=== PATIENT | female | born 1995 | race Hispanic/Latino ===

== ENCOUNTER 2018-02-20 23:10 | Emergency (ER) | payer SELFPAY ==
[2018-02-21 00:44] LABS: Urine Blood NEGATIVE (NEG); Urine Glucose TRACE (NEG); Urine Protein NEGATIVE (NEG); Urine pH 8.5 (5.0-7.0)
--- NOTE | 2018-02-21 01:21 | ER ---
Nurse's Notes [facility] Name: Yola Smith Age: 22 yrs Sex: Female : 1995 Arrival Date: 02/20/2018 Time: 23:16 Bed 25 Private MD: Diagnosis: Acute anal fissure Presentation: 02/20 23:30 Presenting complaint: Patient states: that she is having bleeding when she has a bowel fc movement. Pt is having constipation. Transition of care: patient was not received from another setting of care. Onset of symptoms was February 20, 2018. Risk Assessment: Do you want to hurt yourself or someone else? Patient reports no desire to harm self or others. Initial Sepsis Screen: Does the patient meet any 2 criteria? No. Patient's initial sepsis screen is negative. Does the patient have a suspected source of infection? No. Patient's initial sepsis screen is negative. Care prior to arrival: None. 23:30 Method Of Arrival: Ambulatory fc 23:30 Acuity: CARLOS ALBERTO 3 fc Triage Assessment: 23:32 General: Appears comfortable, well groomed, Behavior is calm, cooperative, appropriate fc for age. Pain: Complains of pain in anus Quality of pain is described as burning, aching, Pain began gradually, Is intermittent. EENT: No deficits noted. Neuro: Level of Consciousness is awake, alert, obeys commands, Oriented to person, place, time, situation. Cardiovascular: No deficits noted. Respiratory: No deficits noted. GI: Reports rectal bleeding. : No deficits noted. Derm: Skin is pink, warm \T\ dry. Musculoskeletal: Circulation, motion, and sensation intact. Capillary refill < 3 seconds, Range of motion: intact in all extremities. 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 - Social history:: Smoking status: Patient/guardian denies using tobacco. - Ebola Screening: : Patient negative for fever greater than or equal to 101.5 degrees Fahrenheit, and additional compatible Ebola Virus Disease symptoms Patient denies exposure to infectious person Patient denies travel to an Ebola-affected area in the 21 days before illness onset. Screenin/23 00:46 Abuse screen: Denies threats or abuse. Nutritional screening: No deficits noted. tl3 Tuberculosis screening: No symptoms or risk factors identified. Fall Risk None identified. Assessment: 00:46 General: Appears in no apparent distress. comfortable, slender, well groomed, well tl3 developed, well nourished, Behavior is calm, cooperative, appropriate for age. Pain: Complains of pain in rectal pain with BM. Neuro: Level of Consciousness is awake, alert, obeys commands, Oriented to person, place, time, situation, Appropriate for age. Cardiovascular: Heart tones S1 S2 present Patient's skin is warm and dry. Respiratory: Airway is patent Respiratory effort is even, unlabored, Respiratory pattern is regular, symmetrical, Breath sounds are clear bilaterally. GI: No signs and/or symptoms were reported involving the gastrointestinal system. : No signs and/or symptoms were reported regarding the genitourinary system. EENT: No signs and/or symptoms were reported regarding the EENT system. Derm: No signs and/or symptoms reported regarding the dermatologic system. Musculoskeletal: No signs and/or symptoms reported regarding the musculoskeletal system. 01:14 Reassessment: No changes from previously documented assessment. Patient and/or family fc updated on plan of care and expected duration. Pain level reassessed. Patient is alert, oriented x 3, equal unlabored respirations, skin warm/dry/pink. Dr Mcdonnell in the room to see and examine pt. Vital Signs: 02/20 23:34 BP 112 / 64; Pulse 99; Resp 20; Temp 98.7(O); Pulse Ox 100% on R/A; Weight 68.04 kg fc (R); Height 5 ft. 5 in. (165.10 cm) (R); Pain 4/10; 02/21 00:46 BP 116 / 69; Pulse 90; Resp 18; Pulse Ox 99% ; tl3 02/20 23:34 Body Mass Index 24.96 (68.04 kg, 165.10 cm) ED Course: 02/20 23:16 Patient arrived in ED. ds1 23:31 Triage completed. 23:34 Arm band placed on Patient placed in waiting room, Patient notified of wait time. 02/21 00:26 Brian Mcdonnell MD is Attending Physician. 00:31 Mona Vera, RN is Primary Nurse. tl3 00:46 Patient has correct armband on for positive identification. Placed in gown. Bed in low tl3 position. Call light in reach. Side rails up X 1. Adult w/ patient. Warm blanket given. 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 kr2 01:20 Patient did not have IV access during this emergency room visit. kr2 01:21 Pino Fung MD is Referral Physician. gs Administered Medications: No medications were administered Outcome: 01:20 Discharged to home ambulatory, with friend. kr2 01:20 Condition: good 01:20 Discharge instructions given to patient, Instructed on discharge instructions, follow up and referral plans. medication usage, Demonstrated understanding of instructions, follow-up care, medications, Prescriptions given X 1. 01:21 Discharge ordered by . 01:27 Patient left the ED. kr2 Signatures: Madeleine Jama RN RN Ysabel Lozano ds1 Margarita Hairston RN RN tl2 Brian Mcdonnell MD MD Mariel Vitale RN RN kr2 Mona Vera, RN RN tl3 Corrections: (The following items were deleted from the chart) 01:19 00:46 No provider procedures requiring assistance completed. 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 tl2 tl2 01:27 01:20 Discharge instructions given to patient, Instructed on discharge instructions, kr2 follow up and referral plans. Demonstrated understanding of instructions, follow-up care, kr2
--- NOTE | 2018-02-21 01:21 | EDPHYS ---
Physician Documentation [facility] Name: Yola Smith Age: 22 yrs Sex: Female : 1995 Arrival Date: 02/20/2018 Time: 23:16 Bed 25 Private MD: ED Physician Brian Mcdonnell HPI: 02/21 01:15 This 22 yrs old Female presents to ER via Ambulatory with complaints of Rectal gs Bleeding. 01:15 The patient presents to the emergency department with bleeding from the rectum/anus, gs that is moderate, pain in the rectal area, that is moderate. Onset: The symptoms/episode began/occurred yesterday. Context: the patient has no known special context relating to the rectal area complaint(s). Modifying factors: The symptoms are aggravated by bowel movement. Associate signs and symptoms: Pertinent positives: lower GI bleeding, Pertinent negatives: abdominal pain, fever. The patient has not experienced similar symptoms in the past. The patient has not recently seen a physician. 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 - Social history:: Smoking status: Patient/guardian denies using tobacco. - Ebola Screening: : Patient negative for fever greater than or equal to 101.5 degrees Fahrenheit, and additional compatible Ebola Virus Disease symptoms Patient denies exposure to infectious person Patient denies travel to an Ebola-affected area in the 21 days before illness onset. ROS: 02/21 01:15 All other systems are negative. gs Exam: 01:15 Chest/axilla: Normal chest wall appearance and motion. Nontender with no deformity. gs No lesions are appreciated. Cardiovascular: Regular rate and rhythm with a normal S1 and S2. No gallops, murmurs, or rubs. Normal PMI, no JVD. No pulse deficits. Respiratory: Lungs have equal breath sounds bilaterally, clear to auscultation and percussion. No rales, rhonchi or wheezes noted. No increased work of breathing, no retractions or nasal flaring. Abdomen/GI: Soft, non-tender, with normal bowel sounds. No distension or tympany. No guarding or rebound. No evidence of tenderness throughout. Skin: Warm, dry with normal turgor. Normal color with no rashes, no lesions, and no evidence of cellulitis. MS/ Extremity: Pulses equal, no cyanosis. Neurovascular intact. Full, normal range of motion. 01:15 Constitutional: The patient appears alert, awake. 01:15 Abdomen/GI: Rectal exam: hemorrhoid(s), are not appreciated, with associated bleeding, 2 cm anal fissure at 6 oclock mild bleeding, tenderness, that is mild, the exam is chaperoned by the nurse. Vital Signs: 02/20 23:34 BP 112 / 64; Pulse 99; Resp 20; Temp 98.7(O); Pulse Ox 100% on R/A; Weight 68.04 kg fc (R); Height 5 ft. 5 in. (165.10 cm) (R); Pain 4/10; 02/21 00:46 BP 116 / 69; Pulse 90; Resp 18; Pulse Ox 99% ; tl3 02/20 23:34 Body Mass Index 24.96 (68.04 kg, 165.10 cm) MDM: 01:14 Patient medically screened. gs 01:15 Differential diagnosis: hemorrhoids, fissure. Data reviewed: vital signs, nurses notes. gs Response to treatment: the patient's symptoms have markedly improved after treatment, and as a result, I will discharge patient. 02/21 00:37 Order name: Urine Dipstick--Ancillary (enter results); Complete Time: 01:22 rg2 02/21 01:00 Order name: Urine --Ancillary (enter results); Complete Time: : rg2 Administered Medications: No medications were administered Disposition: 02/21/18 01:21 Discharged to Home. Impression: Acute anal fissure. - Condition is Stable. - Discharge Instructions: Anal Fissure, Adult. - Prescriptions for Colace 100 mg Oral Tablet - take 1 tablet by ORAL route every 12 hours; 14 tablet. - Medication Reconciliation Form, Thank You Letter, Antibiotic Education, Prescription Opioid Use, Family Work Release form. - Follow up: Private Physician; When: 2 - 3 days; Reason: Re-evaluation by your physician. Follow up: Pino Fung MD; When: 2 - 3 days; Reason: Re-evaluation by your physician. - Notes: recticare with lidocaine over the counter as directed Signatures: Dispatcher [employer] Madeleine Harper RN RN Brian Mcdonnell MD MD gs Reaves, Karey, RN RN kr2 Corrections: (The following items were deleted from the chart) 01:27 01:21 02/21/2018 01:21 Discharged to Home. Impression: Acute anal fissure. Condition is kr2 Stable. Forms are Medication Reconciliation Form, Thank You Letter, Antibiotic Education, Prescription Opioid Use. Follow up: Private Physician; When: 2 - 3 days; Reason: Re-evaluation by your physician. Follow up: Pino Fung; When: 2 - 3 days; Reason: Re-evaluation by your physician.
== END 2018-02-21 01:27 | disposition home or self-care (01) ==
LOC: ER 23:10
DX: K60.2 Anal fissure, unspecified (principal)
CPT/HCPCS: 81003; 81025; 99283

== ENCOUNTER 2020-05-27 17:49 | Emergency (ER) | payer SELFPAY ==
[2020-05-27 18:52] LABS: Absolute Lymphocytes (CBC) 1.4 K/uL (0.7-4.9); Basophils % 1.3 % (0-1.3); Hematocrit 21.3 % (36.0-45.0); Lymphocytes % 19.4 % (15.3-44.8); MPV 10.8 fL (7.6-11.3); RBC Red Blood Cell Count 3.76 M/uL (3.86-4.86)
[2020-05-27 18:54] LABS: BUN Blood Urea Nitrogen 11 mg/dL (7-18); Bicarbonate 27 mmol/L (21-32); Glucose Level 97 mg/dL (74-106); Potassium 4.1 mmol/L (3.5-5.1); Sodium Level 140 mmol/L (136-145)
[2020-05-27 19:42] LABS: Anisocytosis 1+; Blood Morphology Comment NOTED (NOT SEEN); Hypochromasia 3+; Platelet Estimate ADEQ; White Blood Cell Scan OK (OK)
[2020-05-27 19:55] LABS: Urine Blood TRACE (NEG); Urine Glucose NEGATIVE (NEG); Urine Protein NEGATIVE (NEG); Urine Specific Gravity 1.025 (1.005-1.030)
[2020-05-27] MEDS ORDERED: NA CHLORIDE 0.9% 500 ML ONE (21:25)
[2020-05-28 03:44] LABS: Hematocrit 25.2 % (36.0-45.0)
--- NOTE | 2020-05-28 04:07 | ER ---
Nurse's Notes [facility] Name: Yola Smith Age: 24 yrs Sex: Female : 1995 Arrival Date: 05/27/2020 Time: 17:56 Bed 7 Private MD: Diagnosis: Symptomatic Anemia Presentation: 05/27 18:00 Chief complaint: Patient states: HGB 6.0, sent by her doctor Fabiola. She has had ll1 vaginal bleeding for 9 months. Weak and easily fatigued for 5 weeks. Coronavirus screen: Client denies travel out of the [place] in the last 14 days. At this time, the client does not indicate any symptoms associated with coronavirus-19. Ebola Screen: Patient denies travel to an Ebola-affected area in the 21 days before illness onset. Initial Sepsis Screen: Does the patient meet any 2 criteria? HR > 90 bpm. Risk Assessment: Do you want to hurt yourself or someone else? Patient reports no desire to harm self or others. Onset of symptoms was October 26, 2019. 18:00 Method Of Arrival: Ambulatory ll1 18:00 Acuity: CARLOS ALBERTO 3 ll1 18:30 Initial Sepsis Screen: Does the patient have a suspected source of infection? No. sv Patient's initial sepsis screen is negative. 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 - Social history:: Smoking status: Patient denies any tobacco usage or history of. Screenin:30 Abuse screen: Denies threats or abuse. Denies injuries from another. Nutritional sv screening: No deficits noted. Tuberculosis screening: No symptoms or risk factors identified. Fall Risk None identified. Assessment: 18:30 General: Appears in no apparent distress. comfortable, well groomed, well developed, sv Behavior is calm, cooperative, appropriate for age. General: Reports fatigue for >3 days. Pain: Denies pain. Neuro: Level of Consciousness is awake, alert, obeys commands, Oriented to person, place, time, situation, Moves all extremities. Full function Gait is steady, Speech is normal, Reports weakness. Respiratory: Airway is patent Respiratory effort is even, unlabored, Respiratory pattern is regular, symmetrical. Derm: Skin is intact, Skin is pale. 19:15 Reassessment: Patient appears in no apparent distress at this time. Patient aware of lp1 plan for blood transfusion. Neuro: Level of Consciousness is awake, alert, obeys commands, Oriented to person, place, time, situation. Respiratory: Respiratory effort is even, unlabored. Derm: Skin is intact, Skin is dry, Skin is pale. 21:25 Reassessment: nurse at bedside for beginning of PRBC transfusion. lp1 21:25 Neuro: Level of Consciousness is awake, alert, obeys commands. Respiratory: Respiratory lp1 effort is even, unlabored. Derm: Skin is intact, Skin is dry, Skin is pale. 23:45 Reassessment: Patient is alert, oriented x 3, equal unlabored respirations, skin lp1 warm/dry/pink. Patient ambulated to bathroom independently at this time;. 05/28 01:30 Reassessment: Patient appears in no apparent distress at this time. Patient is alert, lp1 oriented x 3, equal unlabored respirations, skin warm/dry/pink. Patient aware of 2hr post H/H to be drawn after completion of transfusion; significant other at bedside. 03:30 Reassessment: Patient appears in no apparent distress at this time. Patient is alert, lp1 oriented x 3, equal unlabored respirations, skin warm/dry/pink. Patient states feeling better. 04:02 Reassessment: Patient appears in no apparent distress at this time. Patient is alert, lp1 oriented x 3, equal unlabored respirations, skin warm/dry/pink. Patient demonstrates understanding of follow up with her doctor Patient states feeling better. Vital Signs: 05/27 18:00 BP 127 / 70; Pulse 95; Resp 17; Temp 98.9; Pulse Ox 100% ; Weight 79.38 kg; Height 5 ll1 ft. 2 in. (157.48 cm); Pain 0/10; 19:00 BP 100 / 67; Pulse 88; Resp 18; Pulse Ox 100% on R/A; lp1 19:30 BP 100 / 65; Pulse 87; Resp 18; Pulse Ox 100% on R/A; lp1 21:00 BP 103 / 59; Pulse 87; Resp 16; Temp 98.6; Pulse Ox 100% on R/A; lp1 23:25 BP 110 / 63; Pulse 78; Resp 16; Temp 98.3(TE); Pulse Ox 100% on R/A; lp1 23:55 lp1 05/28 01:25 BP 106 / 71; Pulse 80; Resp 16; Temp 98.6(TE); Pulse Ox 100% on R/A; lp1 04:00 BP 110 / 66; Pulse 73; Resp 16; Pulse Ox 100% on R/A; lp1 05/27 18:00 Body Mass Index 32.01 (79.38 kg, 157.48 cm) 1 05/27 21:00 See Blood Transfusion record for further vitals lp1 23:25 1 unit of PRBC completed at this time lp1 23:55 See Blood Transfusion record for further vitals lp1 05/28 01:25 Completed 2nd unit of PRBC lp1 ED Course: 05/27 17:56 Patient arrived in ED. ds1 18:02 Triage completed. ll1 18:03 Arm band placed on Patient placed in an exam room, on a stretcher. ll1 18:05 Aj Hui MD is Attending Physician. kdr 18:15 Coco Portillo RN is Primary Nurse. sv 18:25 Missed attempt(s): 20 gauge in left antecubital area. done by Luz Maria RIOJAS. Bleeding sv controlled, band aid applied, catheter tip intact. 18:30 Patient has correct armband on for positive identification. Bed in low position. Call sv light in reach. Adult w/ patient. Pulse ox on. NIBP on. Door closed. Warm blanket given. Head of bed elevated. 18:30 T\T\S collected, blood band applied to patient. Inserted saline lock: 20 gauge in right sv antecubital area, using aseptic technique. Blood collected. Flushed right antecubital with 5 ml normal saline. 18:49 Type And Screen Sent. sv 18:49 Chem 7 Sent. sv 18:49 CBC with Diff Sent. sv 19:39 Attending Physician role handed off by Aj Hui MD 7 19:39 Jose Edward MD is Attending Physician. 7 21:25 One-on-one care X 30 minutes. lp1 22:06 No provider procedures requiring assistance completed. lp1 23:55 One-on-one care X 15 minutes. lp1 05/28 03:30 Repeat lab(s) drawn. by me, sent to lab. lp1 04:03 IV discontinued, No redness/swelling at site. Pressure dressing applied. lp1 04:05 Lauren Hicks MD is Referral Physician. 7 Administered Medications: No medications were administered Outcome: 04:06 Discharge ordered by MD. 7 04:10 Discharged to home ambulatory, with significant other. lp1 04:10 Condition: good 04:10 Discharge instructions given to patient, Instructed on discharge instructions, follow up and referral plans. Demonstrated understanding of instructions, follow-up care. 04:11 Patient left the ED. lp1 Signatures: Coco Portillo RN RN Aj Hui MD MD kdr Sanford, Demi ds1 Dasia Monroe RN RN lp1 Weston Key RN RN 1 Jose Edward MD MD 7 Corrections: (The following items were deleted from the chart) 05/27 18:06 18:00 Chief complaint: Patient states: HGB 6.0, sent by her doctor Fabiola. She has ll1 had vaginal bleeding for 9 months. ll1
--- NOTE | 2020-05-28 04:07 | EDPHYS ---
Physician Documentation [facility] Name: Yola Smith Age: 24 yrs Sex: Female : 1995 Arrival Date: 05/27/2020 Time: 17:56 Bed 7 Private MD: ED Physician Jose Edward HPI: 05/28 03:56 This 24 yrs old Female presents to ER via Ambulatory with complaints of mh7 Abnormal Labs. 03:56 Abnormal lab with HGB of 6.[address] Sanchez. mh7 03:57 Onset: The symptoms/episode began/occurred yesterday. Severity of symptoms: At their mh7 worst the symptoms were moderate yesterday, in the emergency department the symptoms are unchanged. The patient has been recently seen by a physician: Dr. Sanchez. Patient had labs done by Dr. Sanchez because of history of anemia due to irregular vaginal bleeding. She currently does not have vaginal bleeding but had it for 9 months. She has had some generalized fatigue but no other complaints. She was sent to get blood transfusion then discharge and follow up in office.. 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 - Social history:: Smoking status: Patient denies any tobacco usage or history of. ROS: 05/28 03:57 Constitutional: Negative for fever, chills, and weight loss, Eyes: Negative for injury, mh7 pain, redness, and discharge, ENT: Negative for injury, pain, and discharge, Neck: Negative for injury, pain, and swelling, Cardiovascular: Negative for chest pain, palpitations, and edema, Respiratory: Negative for shortness of breath, cough, wheezing, and pleuritic chest pain, Abdomen/GI: Negative for abdominal pain, nausea, vomiting, diarrhea, and constipation, Back: Negative for injury and pain, : Negative for injury, bleeding, discharge, and swelling, MS/Extremity: Negative for injury and deformity, Skin: Negative for injury, rash, and discoloration, Neuro: Negative for headache, weakness, numbness, tingling, and seizure, Psych: Negative for depression, anxiety, suicide ideation, homicidal ideation, and hallucinations, Allergy/Immunology: Negative for hives, rash, and allergies, Endocrine: Negative for neck swelling, polydipsia, polyuria, polyphagia, and marked weight changes, Hematologic/Lymphatic: Negative for swollen nodes, abnormal bleeding, and unusual bruising. Exam: 03:57 Constitutional: This is a well developed, well nourished patient who is awake, alert, mh7 and in no acute distress. Head/Face: Normocephalic, atraumatic. 03:57 Neck: Trachea midline, no thyromegaly or masses palpated, and no cervical lymphadenopathy. Supple, full range of motion without nuchal rigidity, or vertebral point tenderness. No Meningismus. Chest/axilla: Normal chest wall appearance and motion. Nontender with no deformity. No lesions are appreciated. Cardiovascular: Regular rate and rhythm with a normal S1 and S2. No gallops, murmurs, or rubs. Normal PMI, no JVD. No pulse deficits. Respiratory: Lungs have equal breath sounds bilaterally, clear to auscultation and percussion. No rales, rhonchi or wheezes noted. No increased work of breathing, no retractions or nasal flaring. Abdomen/GI: Soft, non-tender, with normal bowel sounds. No distension or tympany. No guarding or rebound. No evidence of tenderness throughout. Back: No spinal tenderness. No costovertebral tenderness. Full range of motion. 03:57 Skin: Warm, dry with normal turgor. Normal color with no rashes, no lesions, and no evidence of cellulitis. MS/ Extremity: Pulses equal, no cyanosis. Neurovascular intact. Full, normal range of motion. Neuro: Awake and alert, GCS 15, oriented to person, place, time, and situation. Cranial nerves II-XII grossly intact. Motor strength 5/5 in all extremities. Sensory grossly intact. Cerebellar exam normal. Normal gait. Psych: Awake, alert, with orientation to person, place and time. Behavior, mood, and affect are within normal limits. 03:57 Eyes: Periorbital structures: appear normal, Pupils: equal, round, and reactive to light and accomodation, Extraocular movements: intact throughout, Conjunctiva: pale, bilaterally, Sclera: no appreciated abnormality, Lids and lashes: appear normal. 03:57 : CVA tenderness, is absent, Pelvic Exam: The exam is refused by the patient/guardian. The risks and consequences are understood by the patient, Rectal exam: is refused by patient or guardian. Vital Signs: 05/27 18:00 BP 127 / 70; Pulse 95; Resp 17; Temp 98.9; Pulse Ox 100% ; Weight 79.38 kg; Height 5 1 ft. 2 in. (157.48 cm); Pain 0/10; 19:00 BP 100 / 67; Pulse 88; Resp 18; Pulse Ox 100% on R/A; lp1 19:30 BP 100 / 65; Pulse 87; Resp 18; Pulse Ox 100% on R/A; lp1 21:00 BP 103 / 59; Pulse 87; Resp 16; Temp 98.6; Pulse Ox 100% on R/A; lp1 23:25 BP 110 / 63; Pulse 78; Resp 16; Temp 98.3(TE); Pulse Ox 100% on R/A; lp1 23:55 lp1 05/28 01:25 BP 106 / 71; Pulse 80; Resp 16; Temp 98.6(TE); Pulse Ox 100% on R/A; lp1 04:00 BP 110 / 66; Pulse 73; Resp 16; Pulse Ox 100% on R/A; lp1 05/27 18:00 Body Mass Index 32.01 (79.38 kg, 157.48 cm) [facility] 05/27 21:00 See Blood Transfusion record for further vitals [facility] 23:25 1 unit of PRBC completed at this time lp1 23:55 See Blood Transfusion record for further vitals [facility] 05/28 01:25 Completed 2nd unit of PRBC lp1 MDM: 03:57 Differential Diagnosis Anemia, generalized fatigue. dysfunctional uterine bleeding. [facility] Data reviewed: vital signs, nurses notes, lab test result(s), CBC, electrolytes, urinalysis, UPT:. Data interpreted: Pulse oximetry: on room air is 100 %. Interpretation: normal. Counseling: I had a detailed discussion with the patient and/or guardian regarding: the historical points, exam findings, and any diagnostic results supporting the discharge/admit diagnosis, lab results, the need for outpatient follow up, to return to the emergency department if symptoms worsen or persist or if there are any questions or concerns that arise at home. Response to treatment: the patient's symptoms have resolved after treatment, the patient's blood pressure is in an acceptable range, mental status has returned to baseline, the patient no longer shows bradycardia, the patient is not short of breath, the patient is not tachycardic, the patient's pain is gone, the patient's temperature has normalized, the patient is now symptom free, patient is well hydrated. 04:06 Patient medically screened. [facility] 05/27 18:06 Order name: CBC with Diff kdr 05/27 18:06 Order name: Chem 7 kdr 05/27 18:06 Order name: Type And Screen [facility] 05/27 18:54 Order name: Basic Metabolic Panel; Complete Time: 19:39 [facility] 05/27 18:58 Order name: CBC with Automated Diff; Complete Time: 22:09 [facility] 05/27 19:40 Order name: PRBC [facility] 05/27 19:43 Order name: CBC Smear Scan; Complete Time: 22:09 [facility] 05/27 19:48 Order name: Type and Screen [facility] 05/27 19:51 Order name: Urine Dipstick--Ancillary (enter results) [facility] 05/27 19:51 Order name: Urine --Ancillary (enter results) [facility] 05/27 19:55 Order name: Urine --Ancillary; Complete Time: 22:09 [facility] 05/27 19:55 Order name: Urine Dipstick-Ancillary; Complete Time: 22:09 [facility] 05/27 21:08 Order name: ABO/RH no charge; Complete Time: 22:09 [facility] 05/28 03:02 Order name: Hemoglobin [facility] 05/27 19:40 Order name: Transfuse; Complete Time: 22:09 [facility] 05/27 19:50 Order name: Urine Dipstick-Ancillary (obtain specimen); Complete Time: 19:50 [facility] 05/27 19:50 Order name: Urine Test (obtain specimen); Complete Time: 19:50 [facility] 05/28 03:02 Order name: Hematocrit [facility] 05/28 03:45 Order name: Hemoglobin; Complete Time: 03:52 [facility] 05/28 03:45 Order name: Hematocrit; Complete Time: 03:52 EDIA Administered Medications: No medications were administered Disposition: 05/28/20 04:06 Discharged to Home. Impression: Symptomatic Anemia. - Condition is Stable. - Discharge Instructions: Anemia, Nonspecific, Blood Transfusion, Care After, [id number]. - Medication Reconciliation Form, Thank You Letter, Antibiotic Education, Prescription Opioid Use form. - Follow up: Lauren Hicks MD; When: Tomorrow; Reason: Worsening of condition, Recheck today's complaints, Continuance of care, Re-evaluation by your physician. - Problem is an ongoing problem. - Symptoms have improved. Signatures: Dispatcher [employer] EDMS Dasia Monroe RN RN lp1 Weston Key RN RN ll1 Jsoe Edward MD MD mh7 Corrections: (The following items were deleted from the chart) 04:11 04:06 05/28/2020 04:06 Discharged to Home. Impression: Symptomatic Anemia. Condition is lp1 Stable. Forms are Medication Reconciliation Form, Thank You Letter, Antibiotic Education, Prescription Opioid Use. Follow up: Lauren Hicks; When: Tomorrow; Reason: Worsening of condition, Recheck today's complaints, Continuance of care, Re-evaluation by your physician. Problem is an ongoing problem. Symptoms have improved. mh7
[2020-05-28 04:57] VITALS: O2SAT 100
[2020-05-28 05:04] VITALS: TEMP 98.6
[2020-05-28 05:06] VITALS: BP 110/66
== END 2020-05-28 04:11 | disposition home or self-care (01) ==
LOC: ER 17:49
PROC: 30233N1 Transfusion of Nonautologous Red Blood Cells into Peripheral Vein, Percutaneous Approach (ICD-10-PCS; principal; 2020-05-28)
DX: D64.9 Anemia, unspecified (principal); Z91.010 Allergy to peanuts; Z91.018 Allergy to other foods
CPT/HCPCS: 36415; 80048; 81003; 81025; 85014; 85018; 85025; 86850; 86900; 86901; 99284; J7040; P9016

== ENCOUNTER 2020-08-26 07:08 | Emergency (ER) | payer SELFPAY ==
[2020-08-26] MEDS ORDERED: NA CHLORIDE 0.9% 1,000 ML ONE (07:51)
[2020-08-26 07:57] LABS: Basophils % 0.5 % (0-1.3); Hematocrit 29.7 % (36.0-45.0); Lymphocytes % 18.3 % (15.3-44.8); MPV 12.5 fL (7.6-11.3); RBC Red Blood Cell Count 4.17 M/uL (3.86-4.86)
[2020-08-26 07:58] LABS: Absolute Lymphocytes (CBC) 1.4 K/uL (0.7-4.9)
[2020-08-26] MEDS ORDERED: MORPHINE 2 MG/ML SYR ONE (08:36)
[2020-08-26] MEDS ORDERED: ONDANSETRON 4 MG/2 ML VIAL ONE (08:36)
[2020-08-26 08:45] LABS: BUN Blood Urea Nitrogen 14 mg/dL (7-18); Bicarbonate 24 mmol/L (21-32); Glucose Level 96 mg/dL (74-106); HCG, Quantitative < 1 mIU/mL (1-3); Potassium 3.8 mmol/L (3.5-5.1); Sodium Level 140 mmol/L (136-145)
[2020-08-26 08:49] LABS: ALT/SGPT 14 U/L (12-78); AST/SGOT 12 U/L (15-37); Albumin 3.6 g/dL (3.4-5.0); Alkaline Phosphatase 70 U/L (45-117); Bilirubin Direct < 0.1 mg/dL (0-0.2); Bilirubin Total 0.2 mg/dL (0.2-1.0); Lipase 105 U/L (73-393); Protein, Total 7.4 g/dL (6.4-8.2)
[2020-08-26 09:13] LABS: Blood Morphology Comment NOTED (NOT SEEN); Platelet Estimate ADEQ; Platelets, Giant MODERATE; White Blood Cell Scan OK (OK)
[2020-08-26 09:27] LABS: Urine Blood 3+ (NEG); Urine Glucose NEGATIVE (NEG); Urine Protein NEGATIVE (NEG); Urine Specific Gravity >1.030 (1.005-1.030); Urine pH 6.5 (5.0-7.0)
--- NOTE | 2020-08-26 09:39 | EDPHYS ---
Physician Documentation [facility] Name: Yola Smith Age: 25 yrs Sex: Female : 1995 Arrival Date: 08/26/2020 Time: 07:10 Bed 18 Private MD: Lauren Hicks K ED Physician Elliot Velez HPI: 08/26 07:38 This 25 yrs old Female presents to ER via Ambulatory with complaints of Pelvic alysha Pain, Vaginal Bleeding. 07:38 The patient presents with pelvic pain, vaginal bleeding that is moderate. Onset: The alysha symptoms/episode began/occurred 3 day(s) ago. Modifying factors: The symptoms are alleviated by nothing, the symptoms are aggravated by nothing. Associated signs and symptoms: The patient has no apparent associated signs or symptoms. Severity of symptoms: At their worst the symptoms were moderate, in the emergency department the symptoms are unchanged. The patient has experienced similar episodes in the past, multiple times. 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 - Social history:: Smoking status: Patient denies any tobacco usage or history of. ROS: 07:39 Constitutional: Negative for fever, chills, and weight loss, Eyes: Negative for injury, alysha pain, redness, and discharge, ENT: Negative for injury, pain, and discharge, Neck: Negative for injury, pain, and swelling, Cardiovascular: Negative for chest pain, palpitations, and edema, Respiratory: Negative for shortness of breath, cough, wheezing, and pleuritic chest pain, Back: Negative for injury and pain, : Negative for injury, bleeding, discharge, and swelling, MS/Extremity: Negative for injury and deformity, Skin: Negative for injury, rash, and discoloration, Neuro: Negative for headache, weakness, numbness, tingling, and seizure, Psych: Negative for depression, anxiety, suicide ideation, homicidal ideation, and hallucinations, Allergy/Immunology: Negative for hives, rash, and allergies, Endocrine: Negative for neck swelling, polydipsia, polyuria, polyphagia, and marked weight changes, Hematologic/Lymphatic: Negative for swollen nodes, abnormal bleeding, and unusual bruising. 07:39 Abdomen/GI: Positive for abdominal pain, of the right lower quadrant and left lower quadrant. Exam: 07:39 Constitutional: This is a well developed, well nourished patient who is awake, alert, alysha and in no acute distress. Head/Face: Normocephalic, atraumatic. Eyes: Pupils equal round and reactive to light, extra-ocular motions intact. Lids and lashes normal. Conjunctiva and sclera are non-icteric and not injected. Cornea within normal limits. Periorbital areas with no swelling, redness, or edema. ENT: Nares patent. No nasal discharge, no septal abnormalities noted. Tympanic membranes are normal and external auditory canals are clear. Oropharynx with no redness, swelling, or masses, exudates, or evidence of obstruction, uvula midline. Mucous membranes moist. Neck: Trachea midline, no thyromegaly or masses palpated, and no cervical lymphadenopathy. Supple, full range of motion without nuchal rigidity, or vertebral point tenderness. No Meningismus. Chest/axilla: Normal chest wall appearance and motion. Nontender with no deformity. No lesions are appreciated. Cardiovascular: Regular rate and rhythm with a normal S1 and S2. No gallops, murmurs, or rubs. Normal PMI, no JVD. No pulse deficits. Respiratory: Lungs have equal breath sounds bilaterally, clear to auscultation and percussion. No rales, rhonchi or wheezes noted. No increased work of breathing, no retractions or nasal flaring. Back: No spinal tenderness. No costovertebral tenderness. Full range of motion. Female : Normal external genitalia. Skin: Warm, dry with normal turgor. Normal color with no rashes, no lesions, and no evidence of cellulitis. MS/ Extremity: Pulses equal, no cyanosis. Neurovascular intact. Full, normal range of motion. Neuro: Awake and alert, GCS 15, oriented to person, place, time, and situation. Cranial nerves II-XII grossly intact. Motor strength 5/5 in all extremities. Sensory grossly intact. Cerebellar exam normal. Normal gait. 07:39 Abdomen/GI: Inspection: abdomen appears normal, distension, that is mild, Bowel sounds: active, Palpation: mild abdominal tenderness, in the right lower quadrant and left lower quadrant, Liver: no appreciated palpable abnormalities, Hernia: not appreciated. Vital Signs: 07:26 BP 124 / 85; Pulse 83; Resp 18 S; Temp 99.0(TE); Pulse Ox 98% on R/A; Weight 79.38 kg aa5 (R); Height 5 ft. 2 in. (157.48 cm) (R); Pain 10/10; 08:24 BP 119 / 59; Pulse 87; Resp 16; Pulse Ox 100% ; bp 10:06 BP 103 / 68; Pulse 80; Resp 17; Temp 98.1; Pulse Ox 100% ; bp 07:26 Body Mass Index 32.01 (79.38 kg, 157.48 cm) aa5 MDM: 07:16 Patient medically screened. alysha 07:40 Differential diagnosis: menometrorrhagia, menorrhea, nonspecific abdominal pain, alysha ovarian cyst, pelvic inflammatory disease, uterine fibroids, urinary tract infection. Data reviewed: vital signs, nurses notes, lab test result(s), radiologic studies, plain films. 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 Test interpretation: by ED physician or midlevel provider:. Counseling: I had a detailed discussion with the patient and/or guardian regarding: the historical points, exam findings, and any diagnostic results supporting the discharge/admit diagnosis, lab results, radiology results, the need for outpatient follow up. 08/26 07:28 Order name: Quantitative Hcg; Complete Time: 09:38 [facility] 08/26 07:28 Order name: Basic Metabolic Panel; Complete Time: 09:38 [facility] 08/26 07:28 Order name: CBC with Diff; Complete Time: 09:38 [facility] 08/26 07:38 Order name: LFT's; Complete Time: 09:38 [facility] 08/26 07:38 Order name: Lipase; Complete Time: 09:38 [facility] 08/26 07:53 Order name: Sed Rate; Complete Time: 09:38 [facility] 08/26 07:28 Order name: Urine Test (obtain specimen); Complete Time: 07:56 [facility] 08/26 07:28 Order name: US Transvaginal Study (Probe) [facility] 08/26 07:58 Order name: Urine Dipstick--Ancillary (enter results) em1 12/26 07:58 Order name: Urine --Ancillary (enter results); Complete Time: 09:38 [facility] 08/26 08:24 Order name: CBC Smear Scan; Complete Time: 09:38 [facility] 08/26 07:28 Order name: IV Saline Lock; Complete Time: 08:08 [facility] 08/26 07:28 Order name: Labs collected and sent; Complete Time: 08:08 [facility] 08/26 07:28 Order name: NPO; Complete Time: 08:08 [facility] 08/26 07:28 Order name: Urine Dipstick-Ancillary (obtain specimen); Complete Time: 07:56 [facility] Administered Medications: 07:30 Drug: NS 0.9% 1000 ml Route: IV; Rate: 1 bolus; Site: right antecubital; bp 10:07 Follow up: IV Status: Completed infusion; IV Intake: 1000ml bp 08:00 Drug: morphine 2 mg Route: IVP; Site: right antecubital; bp 10:08 Follow up: Response: Pain is decreased bp 08:00 Drug: Zofran (Ondansetron) 4 mg Route: IVP; Site: right antecubital; bp 10:08 Follow up: Response: No adverse reaction bp Disposition: 08/26/20 09:38 Discharged to Home. Impression: Pelvic and perineal pain, Abnormal uterine and vaginal bleeding, unspecified. - Condition is Stable. - Discharge Instructions: Abnormal Uterine Bleeding, Dysmenorrhea, Pelvic Pain, Female, [id number]. - Prescriptions for Ibuprofen 600 mg Oral Tablet - take 1 tablet by ORAL route every 6 hours As needed take with food; 20 tablet. Tylenol- Codeine #3 300-30 mg Oral Tablet - take 2 tablets by ORAL route every 6 hours As needed; 20 tablet. - Medication Reconciliation Form, Thank You Letter, Antibiotic Education, Prescription Opioid Use form. - Follow up: Dr. Elliot Velez; When: 2 - 3 days; Reason: Recheck today's complaints, Continuance of care, Re-evaluation by your physician. Follow up: Lauren Hicks; When: 2 - 3 days; Reason: Recheck today's complaints, Continuance of care, Re-evaluation by your physician. - Problem is new. - Symptoms have improved. Signatures: Dispatcher [employer] EDMS Elliot Velez MD MD cha Calderon, Audri, RN RN aa5 Mauricio Rico, RN RN bp Corrections: (The following items were deleted from the chart) 10:08 09:38 08/26/2020 09:38 Discharged to Home. Impression: Pelvic and perineal pain; bp Abnormal uterine and vaginal bleeding, unspecified. Condition is Stable. Discharge Instructions: Abnormal Uterine Bleeding, Dysmenorrhea, Pelvic Pain, Female, [id number]. Prescriptions for Ibuprofen 600 mg Oral Tablet - take 1 tablet by ORAL route every 6 hours As needed take with food; 20 tablet, Tylenol-Codeine #3 300-30 mg Oral Tablet - take 2 tablets by ORAL route every 6 hours As needed; 20 tablet. and Forms are Medication Reconciliation Form, Thank You Letter, Antibiotic Education, Prescription Opioid Use. Follow up: Dr. Elliot Velez; When: 2 - 3 days; Reason: Recheck today's complaints, Continuance of care, Re-evaluation by your physician. Follow up: Lauren Hicks; When: 2 - 3 days; Reason: Recheck today's complaints, Continuance of care, Re-evaluation by your physician. Problem is new. Symptoms have improved. alysha
--- NOTE | 2020-08-26 09:39 | ER ---
Nurse's Notes [facility] Name: Yola Smith Age: 25 yrs Sex: Female : 1995 Arrival Date: 08/26/2020 Time: 07:10 Bed 18 Private MD: Lauren Hicks K Diagnosis: Pelvic and perineal pain;Abnormal uterine and vaginal bleeding, unspecified Presentation: 08/26 07:26 Chief complaint: Patient states: low abd pain and vaginal bleeding with clots described aa5 as "heavy" for 2 days. Pt states "I've been bleeding on and off for 9 months and they put me on the Depo shot but it's not helping", last Depo was 3 weeks ago. 07:26 Coronavirus screen: Client denies travel out of the [place] in the last 14 days. At this aa5 time, the client does not indicate any symptoms associated with coronavirus-19. Ebola Screen: Patient negative for fever greater than or equal to 101.5 degrees Fahrenheit, and additional compatible Ebola Virus Disease symptoms. Initial Sepsis Screen: Does the patient meet any 2 criteria? No. Patient's initial sepsis screen is negative. Does the patient have a suspected source of infection? No. Patient's initial sepsis screen is negative. Risk Assessment: Do you want to hurt yourself or someone else? Patient reports no desire to harm self or others. Onset of symptoms was 2019. 07:26 Acuity: CARLOS ALBERTO 3 aa5 07:26 Method Of Arrival: Ambulatory aa5 Triage Assessment: 07:24 General: Appears in no apparent distress. uncomfortable, Behavior is cooperative, bp appropriate for age, anxious. Pain: Complains of pain in pelvis. EENT: No deficits noted. Neuro: No deficits noted. Cardiovascular: No deficits noted. Respiratory: No deficits noted. GI: No signs and/or symptoms were reported involving the gastrointestinal system. : Reports vaginal bleeding that is. Derm: No deficits noted. Musculoskeletal: No deficits noted. 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 - Social history:: Smoking status: Patient denies any tobacco usage or history of. Screenin:26 Abuse screen: Denies threats or abuse. Denies injuries from another. Nutritional bp screening: No deficits noted. Tuberculosis screening: No symptoms or risk factors identified. Fall Risk None identified. Assessment: 07:24 General: SEE TRIAGE NOTE. bp 08:24 Reassessment: No changes from previously documented assessment. Patient and/or family bp updated on plan of care and expected duration. Pain level reassessed. Patient is alert, oriented x 3, equal unlabored respirations, skin warm/dry/pink. U/S AT B/S. 10:06 Reassessment: PT D/C HOME AMBULATORY WITH FAMILY, DX WITH ABNORMAL UTERINE BLEEDING. bp Vital Signs: 07:26 BP 124 / 85; Pulse 83; Resp 18 S; Temp 99.0(TE); Pulse Ox 98% on R/A; Weight 79.38 kg aa5 (R); Height 5 ft. 2 in. (157.48 cm) (R); Pain 10/10; 08:24 BP 119 / 59; Pulse 87; Resp 16; Pulse Ox 100% ; bp 10:06 BP 103 / 68; Pulse 80; Resp 17; Temp 98.1; Pulse Ox 100% ; bp 07:26 Body Mass Index 32.01 (79.38 kg, 157.48 cm) aa5 ED Course: 07:10 Patient arrived in ED. as 07:10 Inserted saline lock: 20 gauge in right antecubital area, using aseptic technique. bp Blood collected. 07:11 Lauren Hicks MD is Private Physician. as 07:16 Elliot Velez MD is Attending Physician. alysha 07:24 Mauricoi Rico, BEULAH is Primary Nurse. bp 07:24 Arm band placed on. bp 07:26 Patient has correct armband on for positive identification. Bed in low position. Call bp light in reach. Side rails up X2. Adult w/ patient. 07:31 Triage completed. aa5 08:52 US Transvaginal Study (Probe) In Process Unspecified. EDMS 09:38 Elliot Velez MD is Referral Physician. alysha 09:38 Lauren Hicks MD is Referral Physician. alysha 10:06 No provider procedures requiring assistance completed. IV discontinued, intact, bp bleeding controlled, No redness/swelling at site. Pressure dressing applied. Administered Medications: 07:30 Drug: NS 0.9% 1000 ml Route: IV; Rate: 1 bolus; Site: right antecubital; bp 10:07 Follow up: IV Status: Completed infusion; IV Intake: 1000ml bp 08:00 Drug: morphine 2 mg Route: IVP; Site: right antecubital; bp 10:08 Follow up: Response: Pain is decreased bp 08:00 Drug: Zofran (Ondansetron) 4 mg Route: IVP; Site: right antecubital; bp 10:08 Follow up: Response: No adverse reaction bp Intake: 10:07 IV: 1000ml; Total: 1000ml. bp Outcome: 09:38 Discharge ordered by . alysha 10:06 Discharged to home ambulatory, with family. bp 10:06 Condition: stable 10:06 Discharge instructions given to patient, Instructed on discharge instructions, follow up and referral plans. medication usage, Demonstrated understanding of instructions, follow-up care, medications, Prescriptions given X 2. 10:08 Patient left the ED. bp Signatures: Dispatcher [employer] EDWA Elliot Velez MD MD cha Martinez, Amelia as Calderon, Audri, RN RN aa5 Mauricio Rico RN RN bp
[2020-08-26 10:14] VITALS: O2SAT 100
[2020-08-26 10:16] VITALS: BP 103/68; TEMP 98.1
--- NOTE | 2020-08-26 13:16 | RAD REPORT ---
EXAM DESCRIPTION: US - Transvaginal Study Probe - 08/26/2020 8:55 am CLINICAL HISTORY: ABD PAIN Pelvic pain. COMPARISON: No comparisons FINDINGS: The uterus is normal in size, shape and echotexture. The uterus measures 9.9 x 5.3 x 5.3 c m. The endometrial stripe measures thickened measuring 24 mm. Both ovaries are normal in size, shape and echotexture. The right ovary measures 4.5 x 2.6 x 2.4 cm. The left ovary measures 4.3 x 2.6 x 1.7 cm. No ovarian or parovarian lesions. No adnexal masses. Normal Doppler blood flow was demonstrated to both ovaries. Trace pelvic free fluid. IMPRESSION: Significant thickening of the endometrial stripe is noted measuring up to 24 mm.This is a nonspecific finding, however correlation with tissue sampling may be considered.
== END 2020-08-26 10:08 | disposition home or self-care (01) ==
LOC: ER 07:08
DX: R10.2 Pelvic and perineal pain (principal); N93.9 Abnormal uterine and vaginal bleeding, unspecified; Z91.010 Allergy to peanuts
CPT/HCPCS: 36415; 76830; 80048; 80076; 81003; 81025; 83690; 84702; 85025; 85652; 96361; 96374; 96375; 99284; J2270; J2405; J7030

== ENCOUNTER 2020-08-31 06:22 | Day surgery (SDC) | payer SELFPAY ==
[2020-08-31] MEDS ORDERED: Ringers Lactate 1,000 ML IV ONE (06:57)
[2020-08-31] MEDS: LIDOCAINE 1% W/EPI 1:100,000 10 ML VIAL ONE ×2 (07:15→08:15)
[2020-08-31] MEDS ORDERED: ACETAMINOPHEN 325 MG TABLET ONE (07:17)
[2020-08-31] MEDS ORDERED: IBUPROFEN 400 MG TAB ONE (07:17)
[2020-08-31] MEDS ORDERED: FENTANYL CITR 100 MCG/2 ML ONE (07:32)
[2020-08-31] MEDS ORDERED: MIDAZOLAM HCL 2 MG/2 ML INJ ONE (07:32)
[2020-08-31] MEDS ORDERED: propofoL 200 MG/20 ML VIAL IV ONE (07:32)
[2020-08-31] MEDS ORDERED: dexAMETHasone 10 MG/ML VIAL ONE (07:33)
[2020-08-31] MEDS ORDERED: ONDANSETRON 4 MG/2 ML VIAL ONE ×2 (07:33→08:57)
[2020-08-31] MEDS ORDERED: KETOROLAC 30 MG/ML INJ ONE (07:33)
[2020-08-31] MEDS ORDERED: LIDOCAINE 1% MPF 30 ML VIAL ONE (07:33)
[2020-08-31 08:53] VITALS: TEMP 97.9; O2SAT 96
[2020-08-31] MEDS ORDERED: HYDROCODONE/APAP 5/325 MG TAB ONE (09:18)
[2020-08-31 09:27] VITALS: BP 116/69
--- NOTE | 2020-08-31 10:09 | OP ---
Date of Procedure: 08/31/2020 Surgeon: Lauren Hicks MD Preoperative Diagnosis: Menorrhagia (AUB-O). Postoperative Diagnosis: Menorrhagia (AUB-O). Procedure Performed: Hysteroscopy, dilation and curettage. Anesthesia: MAC plus paracervical block. Specimens: Endometrial curettings. Complications: No complications. Drains: No drains. Findings: Uterus anteflexed, endometrial cavity fully visualized, irregular thick endometrium in the posterior wall of the uterus. Tiny polyp at the fundus. Adequate sampling was performed, directed curettage of the posterior wall and adequate amount of tissue was obtained. All sent for permanent p athology. Patient is a 25-year-old 0, presented with heavy bleeding 3 months ago to the office with com plaints of prolonged periods of amenorrhea, followed by bleeding, irregular and heavy intermittently since October. So when she was evaluated in May, she was sent for a blood count, then a trans vaginal ultrasound. We discussed about the plan for her bleeding management at the time conservative ly using either daily oral contraceptives or 3 monthly withdrawal to prevent any complications of end ometrial thickening and hyperplasia. Her hemoglobin came back at 6 g. She was sent to the ER for transfusion after some resistance. She understood the implications of severe anemia, so she did receive transfusion in the hospital. Later on was seen in followup and discussed all the findings of the imaging as well as plan for the future. She wanted to receive Depo and Depo injection was given. Endometrial sampling was also recommended at the time. Patient due to lack of insurance, wanted to wait and for a 25-year-old, very acceptabl e to see if this works and if it did not, then endometrial sampling, so later earlier a week ago, she called with still significant bleeding that would not stop and pelvic pain. She was evaluated in ER again. She had an ultrasound as well as blood count. Hemoglobin was still 9.7 g, fairly stable from the past level. This time after reviewing the results from the ER, she was advised to come int o the office. We discussed about the importance of endometrial sampling to rule out any atypia or ma lignancy present at this time since the Depo has not taking care of her bleeding. It was very import ant to be done KELLY, so patient was consented and taken to the OR. She was also given Levaquin and Flagyl starting 36 hours to 48 hours prior due to the pain, just want ed to make sure that there was no endometritis or endometritis salpingitis. Her past cultures were negative and she is monogamous. Description Of Procedure: After informed consent was verified, she was taken back to the OR. Her pa rtner was present by the bedside. Discussed all the concerns about atypia and malignancy. All the p re and postop instructions were reviewed. She was taken back to OR, placed in a supine fashion on th e operating table. After MAC was given, she was placed in a dorsal lithotomy position. Pelvic exam performed. Uterus anteflexed, prep x3 with Betadine was done. The vulva, vagina, speculum placed to expose the cervix. Anterior lip injected with 1% lidocaine mixed with 1:100,000 epinephrine about 8 cc and then at 4 and 8 o'clock positions, 5 cc each. A single-tooth tenaculum placed on the anterio r lip. The diagnostic SlimLine hysteroscope used to enter the cervical canal and traversed under dir ect vision into the uterine cavity. Findings posterior thickened wall with irregular endometrium. A tiny polypoid structure at the fundal endometrium, but the entire cavity visualized, scope was remov ed. Endometrial curettings were performed in a directed fashion in the posterior wall in the fundus, but globally sampling was performed in a gentle, but thorough fashion. All the specimens were salome d off for permanent pathology. Instruments were removed. Instrument and sponge counts were correct at the end of the case. Patient received 30 mg of Toradol intravenous. She was recovered from anest hesia and taken to same-day surgery without any problems. Findings discussed. Instrument, needle, a nd sponge counts were correct at end of the case. EBL was minimal. Findings discussed with her boyfriend. She has a 1-week followup appointment. She will be discharge d home. Regular diet and ambulation. No other discharge medications. SK/JAIROL Voice ID: [id number] Report ID: [id number]
== END 2020-08-31 09:38 | disposition home or self-care (01) ==
LOC: OR 06:22
PROVIDERS: ATTEND Obstetrics & Gynecology
PROC: 0UDB8ZX Extraction of Endometrium, Via Natural or Artificial Opening Endoscopic, Diagnostic (ICD-10-PCS; principal; 2020-08-31 07:30)
DX: N92.1 Excessive and frequent menstruation with irregular cycle (principal); D50.0 Iron deficiency anemia secondary to blood loss (chronic); R19.09 Other intra-abdominal and pelvic swelling, mass and lump; R10.2 Pelvic and perineal pain; Z20.828 Contact with and (suspected) exposure to other viral communicable diseases
CPT/HCPCS: 81025; 88305; J1100; J2250; J2405; J2704; J3010; J7120; U0002

== ENCOUNTER 2021-11-06 05:54 | Emergency (ER) | payer SELFPAY ==
[2021-11-06 06:42] LABS: Absolute Lymphocytes (CBC) 1.5 K/uL (0.7-4.9); Hematocrit 21.5 % (36.0-45.0); Lymphocytes % 27.5 % (15.3-44.8); MPV 9.9 fL (7.6-11.3); RBC Red Blood Cell Count 3.52 M/uL (3.86-4.86)
[2021-11-06 06:54] LABS: BUN Blood Urea Nitrogen 15 mg/dL (7-18); Bicarbonate 26 mmol/L (21-32); Glucose Level 105 mg/dL (74-106); Potassium 3.9 mmol/L (3.5-5.1); Sodium Level 137 mmol/L (136-145)
[2021-11-06] MEDS ORDERED: NA CHLORIDE 0.9% 500 ML ONE (07:40)
[2021-11-06 08:59] LABS: Platelet Estimate ADEQ; White Blood Cell Scan OK (OK)
[2021-11-06 09:00] LABS: Anisocytosis 1+; Blood Morphology Comment NOTED (NOT SEEN); Hypochromasia 2+; Polychromasia 1+; Rouleau NOTED
[2021-11-06 10:40] LABS: Urine Blood 3+ (Negative); Urine Glucose Negative (Negative); Urine Protein Negative (Negative); Urine Specific Gravity >=1.030 (1.005-1.030)
[2021-11-06 10:56] LABS: Urine Specific Gravity/Preg >1.030 (1.005-1.030)
[2021-11-06 10:58] LABS: Urine Bacteria 20-50 /HPF (<20); Urine Mucus 1+ /HPF (NONE SEEN); Urine RBC 20-50 /HPF (NONE SEEN)
--- NOTE | 2021-11-06 12:50 | EKG ---
Test Date: 2021-11-06 Test Time: 06:34:23 Gum Worker: MARY MEASUREMENT RESULTS: Intervals: Rate: 80 IA: 160 QRSD: 86 QT: 386 QTc: 445 Tracy: P: 53 IA: 160 QRS: 52 T: 50 INTERPRETIVE STATEMENTS: Normal sinus rhythm with sinus arrhythmia Normal ECG No previous ECG available for comparison Electronically Signed On 11-06-21 12:49:23 AIRCRAFT RIVETER by Paul Nixon
--- NOTE | 2021-11-06 13:14 | ER ---
Nurse's Notes [facility] Name: Yola Smith Age: 26 yrs Sex: Female : 1995 Arrival Date: 11/06/2021 Time: 05:59 Bed 6 Private MD: Diagnosis: Anemia, unspecified;Abnormal uterine and vaginal bleeding, unspecified Presentation: 11/06 06:23 Chief complaint: Patient states: vaginal bleeding [id number], sob, palpitations and sm5 headache for the past week. has received blood transfusion in the past for vaginal bleeding. Coronavirus screen: Vaccine status: Patient reports being unvaccinated. Ebola Screen: No symptoms or risks identified at this time. Initial Sepsis Screen: Does the patient meet any 2 criteria? No. Patient's initial sepsis screen is negative. Does the patient have a suspected source of infection? No. Patient's initial sepsis screen is negative. Risk Assessment: Do you want to hurt yourself or someone else? Patient reports no desire to harm self or others. Onset of symptoms was October 09, 2021. 06:23 Method Of Arrival: Ambulatory [facility] 06:23 Acuity: CARLOS ALBERTO 3 sm5 Triage Assessment: 06:25 General: Appears in no apparent distress. Behavior is cooperative. Pain: Complains of sm5 pain in head. Neuro: No deficits noted. Level of Consciousness is awake, alert, obeys commands, Oriented to person, place, time, situation. : Reports vaginal bleeding that is since 1 month. Derm: Skin is pale. 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 - Social history:: Smoking status: Patient denies any tobacco usage or history of. Screenin:47 Abuse screen: Denies threats or abuse. Nutritional screening: No deficits noted. sf1 Tuberculosis screening: No symptoms or risk factors identified. Fall Risk None identified. Assessment: 06:47 General: Appears in no apparent distress. Behavior is calm, cooperative, appropriate sf1 for age. 06:49 Reassessment: Hgb: 6.4. ER EXPORT CLERK Lincoln is aware. al4 06:49 Neuro: No deficits noted. Cardiovascular: Reports palpitations. Respiratory: Reports sf1 shortness of breath at rest. GI: No deficits noted. : Reports vaginal bleeding that is since 10/09/21. EENT: No deficits noted. Derm: Skin is pale. Musculoskeletal: No deficits noted. Vital Signs: 06:23 BP 130 / 68; Pulse 90; Resp 19; Temp 98.8(O); Pulse Ox 98% on R/A; Weight 77.11 kg; sm5 Height 5 ft. 2 in. (157.48 cm); 08:00 BP 101 / 68; Pulse 76; Resp 18; Pulse Ox 100% on R/A; ic1 08:29 BP 116 / 72; Pulse 95; Resp 18; Pulse Ox 100% ; al4 09:42 BP 111 / 70; Pulse 71; Resp 17; Pulse Ox 98% on R/A; al4 10:45 BP 107 / 67; Pulse 82; Resp 17; Pulse Ox 100% on R/A; al4 11:19 BP 110 / 65; Pulse 67; Resp 16; Pulse Ox 100% on R/A; al4 12:15 BP 102 / 75; Pulse 58; Resp 16; Pulse Ox 98% on R/A; hill 06:23 Body Mass Index 31.09 (77.11 kg, 157.48 cm) 5 ED Course: 05:59 Patient arrived in ED. es 06:00 Inserted saline lock: 20 gauge in right antecubital area, using aseptic technique. sf1 Blood collected. 06:10 Senait Stark FNP-C is PHCP. kb 06:10 Aj Hui MD is Attending Physician. kb 06:21 Sheryl Villalpando RN is Primary Nurse. sf1 06:24 Triage completed. sm5 06:25 Arm band placed on right wrist. sm5 06:32 Basic Metabolic Panel Sent. sf1 06:32 CBC with Diff Sent. sf1 06:40 Type And Screen Sent. sf1 06:44 Type And Screen Sent. sf1 06:44 Basic Metabolic Panel Sent. sf1 06:44 CBC with Diff Sent. sf1 11:20 Urine Culture Sent. al4 13:45 No provider procedures requiring assistance completed. Inserted saline lock: 20 gauge hill in left hand, using aseptic technique. 13:46 Patient has correct armband on for positive identification. Bed in low position. hill 13:46 IV discontinued, intact, Pressure dressing applied. hill Administered Medications: No medications were administered Outcome: 13:13 Discharge ordered by MD. nguyen 13:45 Discharged to home ambulatory. hill 13:45 Condition: good 13:45 Discharge instructions given to patient. 13:47 Patient left the ED. hill Signatures: Senait Stark, UPPER EXTREMITY SURGEON-C UPPER EXTREMITY SURGEON-Ckb Karina Ibrahim Alexis al4 Akiko Roach, RN RN sm5 Au-Stager, Camille RN RN Fartun Isabel RN RN ic1 Sheryl Villalpando RN RN sf1
--- NOTE | 2021-11-06 13:14 | EDPHYS ---
Physician Documentation [facility] Name: Yola Smith Age: 26 yrs Sex: Female : 1995 Arrival Date: 11/06/2021 Time: 05:59 Bed 6 Private MD: ED Physician Aj Hui HPI: 11/06 06:47 This 26 yrs old Female presents to ER via Ambulatory with complaints of kb Vaginal Bleeding. 06:47 The patient presents with vaginal bleeding that is. Onset: The symptoms/episode kb began/occurred 1 month(s) ago. Modifying factors: The symptoms are alleviated by nothing, the symptoms are aggravated by nothing. Associated signs and symptoms: Pertinent positives: vaginal bleeding, palpitations, shortness of breath. Severity of symptoms: At their worst the symptoms were moderate, in the emergency department the symptoms are unchanged. The patient's method of control includes nothing. The patient has experienced similar episodes in the past. The patient has not recently seen a physician. Pt reports vaginal bleeding for one month. States this has happened several times in the past and they have tried multiple treatments, but nothing has helped. Had to have a blood transfusion last year. Came in today for palpitations and shortness of breath on exertion that has been going on for a week. . 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 - Social history:: Smoking status: Patient denies any tobacco usage or history of. ROS: 06:49 Constitutional: Negative for fever, chills, and weight loss. kb 06:49 Cardiovascular: Positive for palpitations. 06:49 Respiratory: Positive for dyspnea on exertion. 06:49 : Positive for vaginal bleeding. 06:49 All other systems are negative. Exam: 06:37 Constitutional: This is a well developed, well nourished patient who is awake, alert, kb and in no acute distress. Head/Face: Normocephalic, atraumatic. ENT: Moist Mucous membranes Cardiovascular: Regular rate and rhythm with a normal S1 and S2. No gallops, murmurs, or rubs. No pulse deficits. Respiratory: Respirations even and unlabored. No increased work of breathing. Talking in full sentences Abdomen/GI: Soft, non-tender. No distention Skin: Warm, dry with normal turgor. Normal color. MS/ Extremity: Pulses equal, no cyanosis. Neurovascular intact. Full, normal range of motion. Neuro: Awake and alert, GCS 15, oriented to person, place, time, and situation. Moves all extremities. Normal gait. Psych: Awake, alert, with orientation to person, place and time. Behavior, mood, and affect are within normal limits. 06:37 ECG was reviewed by the Attending Physician. Vital Signs: 06:23 BP 130 / 68; Pulse 90; Resp 19; Temp 98.8(O); Pulse Ox 98% on R/A; Weight 77.11 kg; 5 Height 5 ft. 2 in. (157.48 cm); 08:00 BP 101 / 68; Pulse 76; Resp 18; Pulse Ox 100% on R/A; ic1 08:29 BP 116 / 72; Pulse 95; Resp 18; Pulse Ox 100% ; al4 09:42 BP 111 / 70; Pulse 71; Resp 17; Pulse Ox 98% on R/A; al4 10:45 BP 107 / 67; Pulse 82; Resp 17; Pulse Ox 100% on R/A; al4 11:19 BP 110 / 65; Pulse 67; Resp 16; Pulse Ox 100% on R/A; al4 12:15 BP 102 / 75; Pulse 58; Resp 16; Pulse Ox 98% on R/A; hill 06:23 Body Mass Index 31.09 (77.11 kg, 157.48 cm) [facility] MDM: 06:14 Patient medically screened. 06:49 Data reviewed: vital signs, nurses notes. Data interpreted: Pulse oximetry: on room air kb is 98 %. Interpretation: normal. 06:54 Data reviewed: I have discussed the patient's presentation/case with the attending Emergency Department Physician; and as a result, I will transfuse 2 units PRBC and discharge home for outpatient follow up with BRIQUETTER OPERATOR. 13:11 Counseling: I had a detailed discussion with the patient and/or guardian regarding: the kb historical points, exam findings, and any diagnostic results supporting the discharge/admit diagnosis, lab results, the need for outpatient follow up, an OB/Gyne specialist, to return to the emergency department if symptoms worsen or persist or if there are any questions or concerns that arise at home. 11/06 06:14 Order name: Urine Microscopic Only 11/06 06:15 Order name: Urine Microscopic Only; Complete Time: 11:02 EDMS 11/06 06:18 Order name: CBC with Diff; Complete Time: 09:00 kb 11/06 06:18 Order name: Basic Metabolic Panel; Complete Time: 06:56 kb 11/06 06:18 Order name: Type And Screen kb 11/06 06:50 Order name: CBC Smear Scan; Complete Time: 09:00 EDMS 11/06 06:18 Order name: EKG; Complete Time: 06:19 kb 11/06 07:01 Order name: Bb Add On ds4 11/06 07:05 Order name: Packed RBC Leukored EDLA 11/06 07:17 Order name: COVID-19 SARS RT PCR (Document "Date of Onset" if Symptomatic); Complete al4 Time: 08:26 11/06 10:39 Order name: Urine Dipstick-Ancillary; Complete Time: 10:42 EDLA 11/06 10:39 Order name: Urine --Ancillary (enter results); Complete Time: 11:02 bd 11/06 10:59 Order name: Urine Culture EDLA 11/06 06:14 Order name: Urine Dipstick-Ancillary (obtain specimen) 11/06 06:14 Order name: Urine Test (obtain specimen) 11/06 06:18 Order name: IV Start; Complete Time: 06:32 kb 11/06 06:18 Order name: EKG - Nurse/Tech; Complete Time: 06:32 kb 11/06 08:06 Order name: Diet Regular; Complete Time: 08:06 ic1 EC:37 Rate is 80 beats/min. Rhythm is regular. QRS [place] is Normal. AK interval is normal at kb 160 msec. QRS interval is normal at 86 msec. QT interval is normal at 386 msec. Administered Medications: No medications were administered Disposition: 19:37 Co-signature as Attending Physician, Aj Hui MD I agree with the assessment and kdr plan of care. Disposition Summary: 11/06/21 13:13 Discharge Ordered Location: Home kb Condition: Stable kb Diagnosis - Anemia, unspecified kb - Abnormal uterine and vaginal bleeding, unspecified kb Followup: kb - With: Emergency Department - When: As needed - Reason: Worsening of condition Followup: kb - With: Private Physician - When: 2 - 3 days - Reason: Recheck today's complaints, Continuance of care, Re-evaluation by your physician Discharge Instructions: - Discharge Summary Sheet kb - Anemia kb - Blood Transfusion, Adult kb - Abnormal Uterine Bleeding, [id number] kb Forms: - Medication Reconciliation Form kb - Thank You Letter kb - Antibiotic Education kb - Prescription Opioid Use kb Signatures: Dispatcher [employer] EDMS Senait Stark, MANAGER HAIR-C MANAGER HAIR-Aj Andino MD MD kdr Mazur, Sarah, RN RN sm5
[2021-11-06 14:00] VITALS: TEMP 98.8
[2021-11-06 14:09] VITALS: BP 102/75; O2SAT 98
== END 2021-11-06 13:47 | disposition home or self-care (01) ==
LOC: ER 05:54
PROC: 30233N1 Transfusion of Nonautologous Red Blood Cells into Peripheral Vein, Percutaneous Approach (ICD-10-PCS; principal; 2021-11-06)
DX: D64.9 Anemia, unspecified (principal); Z20.822 Contact with and (suspected) exposure to COVID-19; Z91.010 Allergy to peanuts
CPT/HCPCS: 36415; 80048; 81003; 81015; 81025; 85025; 86850; 86900; 86901; 87086; 87088; 93005; 99283; J7050; P9016; U0003

== ENCOUNTER 2022-05-15 14:27 | Emergency (ER) | payer SELFPAY ==
[2022-05-15 17:20] LABS: Absolute Lymphocytes (CBC) 1.4 K/uL (0.7-4.9); Hematocrit 23.3 % (36.0-45.0); Lymphocytes % 20.4 % (15.3-44.8); MCV 64.2 fL (80-100); MPV 9.7 fL (7.6-11.3); RBC Red Blood Cell Count 3.63 M/uL (3.86-4.86)
[2022-05-15 17:25] LABS: Blood Morphology Comment NOTED (NOT SEEN); Hypochromasia 2+; Platelet Estimate ADEQ; White Blood Cell Scan OK (OK)
[2022-05-15 17:36] LABS: Potassium 3.8 mmol/L (3.5-5.1)
[2022-05-15] MEDS ORDERED: NA CHLORIDE 0.9% 250 ML ONE (19:01)
--- NOTE | 2022-05-15 20:58 | ER ---
Nurse's Notes [facility] Name: Yola Smith Age: 26 yrs Sex: Female : 1995 Arrival Date: 05/15/2022 Time: 14:28 Bed 6 Private MD: Diagnosis: Abnormal uterine and vaginal bleeding, unspecified;Anemia, unspecified Presentation: 05/15 16:52 Chief complaint: Patient states: Vaginal bleed x 1 month with clots approximately the vg1 size of a half dollar size; states SOB and palpitations. Denies NV and dizziness. Coronavirus screen: Vaccine status: Patient reports being unvaccinated. Client denies travel out of the [place] in the last 14 days. Ebola Screen: Patient denies exposure to infectious person. Patient denies travel to an Ebola-affected area in the 21 days before illness onset. Initial Sepsis Screen: Does the patient meet any 2 criteria? No. Patient's initial sepsis screen is negative. Does the patient have a suspected source of infection? No. Patient's initial sepsis screen is negative. Risk Assessment: Do you want to hurt yourself or someone else? Patient reports no desire to harm self or others. Onset of symptoms was May 13, 2022. 16:52 Method Of Arrival: Ambulatory 1 16:52 Acuity: CARLOS ALBERTO 3 vg1 Triage Assessment: 16:56 General: Appears in no apparent distress. uncomfortable, Behavior is calm, cooperative. vg1 Pain:. : Reports vaginal bleeding that is with clots, heavy flow. Historical: - Allergies: 16:56 Peanut Butter Flavor; vg1 22:07 peanut butter flavor (bulk); ha1 - Home Meds: 16:56 Iron CR Oral [Active]; vg1 - PMHx: 16:56 Anemia; vg1 - PSHx: 16:56 Appendectomy; vg1 - Immunization history:: Client reports having NOT received the Covid vaccine. - Social history:: Smoking status: Patient denies any tobacco usage or history of. Screenin:57 Abuse screen: Denies threats or abuse. Denies injuries from another. Nutritional mb8 screening: No deficits noted. Tuberculosis screening: No symptoms or risk factors identified. Fall Risk None identified. Assessment: 18:57 Pain: Denies pain. Cardiovascular: Denies chest pain, shortness of breath. Respiratory: mb8 No deficits noted. : Reports vaginal bleeding that is since 1 month. 19:15 General: Appears in no apparent distress. Behavior is calm, cooperative. Pain: Denies ha1 pain. Neuro: Level of Consciousness is awake, alert, obeys commands, Oriented to person, place, time, situation. Cardiovascular: Patient's skin is warm and dry. Respiratory: No deficits noted. Airway is patent Trachea midline Respiratory effort is even, unlabored, Respiratory pattern is regular, symmetrical. : Reports vaginal bleeding that is bright red. Musculoskeletal: Circulation, motion, and sensation intact. Range of motion: intact in all extremities. 19:56 General: started blood transfusion.. ha1 20:15 Reassessment: Patient and/or family updated on plan of care and expected duration. Pain ha1 level reassessed. Patient is alert, oriented x 3, equal unlabored respirations, skin warm/dry/pink. 21:11 Reassessment: Pt will DC after completion of transfusion. ha1 21:45 Reassessment: Patient and/or family updated on plan of care and expected duration. Pain ha1 level reassessed. Patient is alert, oriented x 3, equal unlabored respirations, skin warm/dry/pink. 21:56 Reassessment: blood infusion completed. no adverse readtion. ha1 Vital Signs: 16:52 BP 119 / 76; Pulse 84; Resp 16; Temp 98.1(TE); Pulse Ox 100% on R/A; Weight 79.38 kg; vg1 Height 5 ft. 2 in. (157.48 cm); Pain 0/10; 19:42 BP 121 / 65; Pulse 98; Resp 17 S; Temp 98.7(O); Pulse Ox 100% on R/A; ha1 20:01 BP 109 / 67; Pulse 82; Resp 17 S; Temp 98.4(O); Pulse Ox 100% on R/A; ha1 20:06 BP 110 / 60; Pulse 86; Resp 17 S; Temp 98.4(O); Pulse Ox 100% on R/A; ha1 20:11 BP 114 / 65; Pulse 88; Resp 18 S; Temp 98.6(O); Pulse Ox 100% on R/A; ha1 20:25 BP 110 / 68; Pulse 88; Resp 18; Temp 98.3(O); Pulse Ox 100% ; ha1 20:55 BP 109 / 60; Pulse 89; Resp 18; Temp 98.5(O); Pulse Ox 100% on R/A; ha1 21:25 BP 110 / 68; Pulse 85; Resp 18 S; Temp 98.4; Pulse Ox 100% on R/A; ha1 21:56 BP 123 / 69; Pulse 94; Resp 19; Temp 98.4(O); Pulse Ox 100% on R/A; ha1 16:52 Body Mass Index 32.01 (79.38 kg, 157.48 cm) vg1 ED Course: 14:28 Patient arrived in ED. rg4 16:42 Senait Stark FNP-C [facility]. kb 16:42 Zan Tate MD is Attending Physician. kb 16:55 Triage completed. vg1 16:56 Arm band placed on. vg1 17:13 Inserted saline lock: 20 gauge in left forearm, using aseptic technique. Blood kc6 collected. 17:14 blood band placed onto left wrist. kc6 17:14 Type And Screen Sent. kc6 17:14 Basic Metabolic Panel Sent. kc6 17:14 CBC with Diff Sent. kc6 19:26 Sunitha Velázquez, RN is Primary Nurse. ha1 22:06 No provider procedures requiring assistance completed. IV discontinued, intact, ha1 bleeding controlled, No redness/swelling at site. Pressure dressing applied. Administered Medications: No medications were administered Medication: 18:57 VIS not applicable for this client. mb8 Outcome: 20:58 Discharge ordered by MD. kb 22:06 Discharged to home ambulatory. ha1 22:06 Condition: stable 22:06 Discharge instructions given to patient, family, Instructed on discharge instructions, follow up and referral plans. Demonstrated understanding of instructions, follow-up care. 22:07 Patient left the ED. ha1 Signatures: Senait Stark FNP-C FNP-Ave Jay rg4 Luz Maria Millan RN RN 1 Sunitha Velázquez, BEULAH RN 1 Lexi Montaño kc6 Adria Godinez RN RN mb8
--- NOTE | 2022-05-15 20:59 | EDPHYS ---
Physician Documentation [facility] Name: Yola Smith Age: 26 yrs Sex: Female : 1995 Arrival Date: 05/15/2022 Time: 14:28 Bed 6 Private MD: ED Physician Zan Tate HPI: 05/16 00:35 This 26 yrs old Female presents to ER via Ambulatory with complaints of kb Vaginal Bleeding. 00:35 The patient presents with vaginal bleeding that is moderate. Onset: The kb symptoms/episode began/occurred 1 month(s) ago. Modifying factors: The symptoms are alleviated by nothing, the symptoms are aggravated by nothing. Associated signs and symptoms: Pertinent positives: vaginal bleeding. Severity of symptoms: At their worst the symptoms were moderate, in the emergency department the symptoms are unchanged. The patient has experienced similar episodes in the past, a few times. The patient has not recently seen a physician. Patient reports she has very heavy periods and has had to have several of blood transfusions in the past. Reports this menstrual cycle has lasted 1 month and recently she has developed shortness of breath on exertion and palpitations. States whenever she has the symptoms it only means that her blood counts are low when she needs a transfusion. Patient has seen gynecology for this problem and has tried multiple different solutions without results.. Historical: - Allergies: 05/15 16:56 Peanut Butter Flavor; vg1 22:07 peanut butter flavor (bulk); ha1 - Home Meds: 16:56 Iron CR Oral [Active]; vg1 - PMHx: 16:56 Anemia; vg1 - PSHx: 16:56 Appendectomy; vg1 - Immunization history:: Client reports having NOT received the Covid vaccine. - Social history:: Smoking status: Patient denies any tobacco usage or history of. ROS: 05/16 00:35 Constitutional: Negative for fever, chills, and weight loss. kb Cardiovascular: Positive for palpitations. Respiratory: Positive for dyspnea on exertion. : Positive for vaginal bleeding. All other systems are negative. Exam: 00:35 Constitutional: This is a well developed, well nourished patient who is awake, alert, kb and in no acute distress. Head/Face: Normocephalic, atraumatic. ENT: Moist Mucous membranes Cardiovascular: Regular rate and rhythm with a normal S1 and S2. No gallops, murmurs, or rubs. No pulse deficits. Respiratory: Respirations even and unlabored. No increased work of breathing. Talking in full sentences Abdomen/GI: Soft, non-tender. No distention Skin: Warm, dry with normal turgor. Normal color. MS/ Extremity: Pulses equal, no cyanosis. Neurovascular intact. Full, normal range of motion. Neuro: Awake and alert, GCS 15, oriented to person, place, time, and situation. Moves all extremities. Normal gait. Psych: Awake, alert, with orientation to person, place and time. Behavior, mood, and affect are within normal limits. Vital Signs: 05/15 16:52 BP 119 / 76; Pulse 84; Resp 16; Temp 98.1(TE); Pulse Ox 100% on R/A; Weight 79.38 kg; vg1 Height 5 ft. 2 in. (157.48 cm); Pain 0/10; 19:42 BP 121 / 65; Pulse 98; Resp 17 S; Temp 98.7(O); Pulse Ox 100% on R/A; ha1 20:01 BP 109 / 67; Pulse 82; Resp 17 S; Temp 98.4(O); Pulse Ox 100% on R/A; ha1 20:06 BP 110 / 60; Pulse 86; Resp 17 S; Temp 98.4(O); Pulse Ox 100% on R/A; ha1 20:11 BP 114 / 65; Pulse 88; Resp 18 S; Temp 98.6(O); Pulse Ox 100% on R/A; ha1 20:25 BP 110 / 68; Pulse 88; Resp 18; Temp 98.3(O); Pulse Ox 100% ; ha1 20:55 BP 109 / 60; Pulse 89; Resp 18; Temp 98.5(O); Pulse Ox 100% on R/A; ha1 21:25 BP 110 / 68; Pulse 85; Resp 18 S; Temp 98.4; Pulse Ox 100% on R/A; ha1 21:56 BP 123 / 69; Pulse 94; Resp 19; Temp 98.4(O); Pulse Ox 100% on R/A; ha1 16:52 Body Mass Index 32.01 (79.38 kg, 157.48 cm) vg1 MDM: 16:42 Patient medically screened. kb 09/15 00:34 Data reviewed: vital signs, nurses notes, I have discussed the patient's kb presentation/case with the attending Emergency Department Physician;. Data interpreted: Pulse oximetry: on room air is 100 %. Interpretation: normal. Counseling: I had a detailed discussion with the patient and/or guardian regarding: the historical points, exam findings, and any diagnostic results supporting the discharge/admit diagnosis, lab results, the need for outpatient follow up, an OB/Gyne specialist, to return to the emergency department if symptoms worsen or persist or if there are any questions or concerns that arise at home. 05/15 16:54 Order name: CBC with Diff; Complete Time: 17:27 kb 05/15 16:54 Order name: Basic Metabolic Panel; Complete Time: 17:39 kb 05/15 16:54 Order name: Type And Screen kb 05/15 17:26 Order name: CBC Smear Scan; Complete Time: 17:27 EDUT 05/15 17:44 Order name: Bb Add On bd 05/15 17:53 Order name: Packed RBC Leukored EDUT 05/15 16:54 Order name: IV Start; Complete Time: 17:14 kb Administered Medications: No medications were administered Disposition: 20:33 Co-signature as Attending Physician, Zan Tate MD. rn Disposition Summary: 05/15/22 20:58 Discharge Ordered Location: Home kb Condition: Stable kb Diagnosis - Abnormal uterine and vaginal bleeding, unspecified kb - Anemia, unspecified kb Followup: kb - With: Emergency Department - When: As needed - Reason: Worsening of condition Followup: kb - With: Private Physician - When: 2 - 3 days - Reason: Recheck today's complaints, Continuance of care, Re-evaluation by your physician Discharge Instructions: - Discharge Summary Sheet kb - Abnormal Uterine Bleeding, [id number] kb Forms: - Medication Reconciliation Form kb - Thank You Letter kb - Antibiotic Education kb - Prescription Opioid Use kb Signatures: Dispatcher [employer] [facility] Senait Stark, EBER-C RD SCIENTIST-Zan Acevedo MD MD rn Garcia, Victoria, RN RN vg1 Sunitha Velázquez, RN RN ha1
[2022-05-16 19:58] VITALS: O2SAT 100
[2022-05-16 20:26] VITALS: BP 109/60; TEMP 98.5
== END 2022-05-15 22:07 | disposition home or self-care (01) ==
LOC: ER 14:27
PROC: 30233N1 Transfusion of Nonautologous Red Blood Cells into Peripheral Vein, Percutaneous Approach (ICD-10-PCS; principal; 2022-05-15)
DX: D64.9 Anemia, unspecified (principal); Z91.010 Allergy to peanuts; Z91.018 Allergy to other foods
CPT/HCPCS: 36415; 80048; 85025; 86850; 86900; 86901; 99283; J7050; P9016

== ENCOUNTER 2023-11-27 21:53 | Emergency (ER) | payer SELFPAY ==
[2023-11-28 00:23] LABS: Absolute Basophils 0.1 K/uL (0-0.5); Absolute Eosinophils 0.2 K/uL (0-0.5); Absolute Lymphocytes (CBC) 1.3 K/uL (0.7-4.9); Absolute Monocytes 0.3 K/uL (0.1-1.3); Absolute Neutrophil 3.3 K/uL (1.8-8.0); Eosinophils % 3.1 % (0-4.4); Hematocrit 16.6 % (36.0-45.0); Lymphocytes % 25.5 % (15.3-44.8); MCH 15.1 pg (27.0-35.0); MCHC 28.2 g/dL (32.0-36.0); MCV 53.7 fL (80-100); MPV 9.8 fL (7.6-11.3); Monocytes % 6.2 % (3.3-12.3); Neutrophils % 64.2 % (41.7-73.7); Nucleated Red Blood Cells % 0.2 % (0-0); Platelets 143 thou/uL (152-406); RBC Red Blood Cell Count 3.09 M/uL (3.86-4.86); Red Cell Distribution Width 19.7 % (12.1-15.2)
[2023-11-28 00:32] LABS: Hemoglobin 4.7 g/dL (12.0-15.0)
[2023-11-28 00:40] LABS: PT Prothrombin Time 12.8 SECONDS (9.5-12.5); PTT, Activated Partial Thromb 28.3 SECONDS (24.3-36.9); Protime INR 1.17
[2023-11-28] MEDS ORDERED: TRANEXAMIC ACID 1,000 MG/10 ML VIAL IV ONE (01:14)
[2023-11-28] MEDS ORDERED: CALCIUM GLUCONATE 1 GM IVPB 2 GM/100 ML BAG IV ONE (01:15)
[2023-11-28 02:01] LABS: Anisocytosis 2+; Blood Morphology Comment NOTED (NOT SEEN); Hypochromasia 3+; Macrocytosis 3+; Microcytosis 3+; Platelet Estimate DECR; Poikilocytosis 1+; Polychromasia 1+; Teardrop Cell 1+; White Blood Cell Scan OK (OK)
[2023-11-28] MEDS ORDERED: NA CHLORIDE 0.9% 250 ML ONE (02:19)
[2023-11-28] MEDS ORDERED: NA CHLORIDE 0.9% 100 ML ONE (05:08)
--- NOTE | 2023-11-28 06:26 | ER ---
Nurse's Notes [facility] Name: Yola Smith Age: 28 yrs Sex: Female : 1995 Arrival Date: 11/27/2023 Time: 21:53 Bed 15 Private MD: Diagnosis: Acute posthemorrhagic anemia;Abnormal uterine and vaginal bleeding, unspecified;Menorrhagia and anemia Presentation: 11/26 22:41 Chief complaint: Patient states: HEART PALPITATIONS. ANEMIA WITH LONG LASTING 6 MONTH jj7 PERIODS. PT IS PALE. FEELING WEAK AND TIRED. Coronavirus screen: At this time, the client does not indicate any symptoms associated with coronavirus-19. Ebola Screen: No symptoms or risks identified at this time. Initial Sepsis Screen: Does the patient meet any 2 criteria? No. Patient's initial sepsis screen is negative. Does the patient have a suspected source of infection? No. Patient's initial sepsis screen is negative. Risk Assessment: Do you want to hurt yourself or someone else? Patient reports no desire to harm self or others. 22:41 Method [facility] Ar[facility]: [facility] 22:41 Acuity: CARLOS ALBERTO 3 jj7 Triage Assessment: 22:47 General: Appears in no apparent distress. comfortable, Behavior is calm, cooperative, jj7 appropriate for age. Pain: Denies pain. Cardiovascular: Reports palpitations, shortness of breath, PALE SKIN. 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 Flu vaccine is not up to date. - Social history:: Smoking status: Patient denies any tobacco usage or history of. Patient/guardian denies using alcohol, street drugs, IV drugs. Screenin:49 [facility] ED Fall Risk Assessment (Adult) History of falling in the last 3 months, jj7 including since admission No falls in past 3 months (0 pts) Confusion or Disorientation No (0 pts) Intoxicated or Sedated No (0 pts) Impaired Gait No (0 pts) Mobility Assist Device Used No (0 pt) Altered Elimination No (0 pt) Score/Fall Risk Level 0 - 2 = Low Risk Oriented to surroundings, Maintained a safe environment, Educated pt \T\ family on fall prevention, incl call for assistance when getting out of bed. Abuse screen: Denies threats or abuse. Nutritional screening: No deficits noted. Tuberculosis screening: No symptoms or risk factors identified. Assessment: 11/27 00:05 General: Appears comfortable, well groomed, well developed, well nourished, Behavior is me1 calm, cooperative, appropriate for age, HEART PALPITATIONS. ANEMIA WITH LONG LASTING 6 MONTH PERIODS. PT IS PALE. FEELING WEAK AND TIRED. Pain: Denies pain. Neuro: Level of Consciousness is awake, alert, obeys commands, Oriented to person, place, time, situation, Appropriate for age. Cardiovascular: Patient's skin is warm and dry. Cardiovascular: Reports palpitations. Respiratory: Airway is patent Respiratory effort is even, unlabored, Respiratory pattern is regular, symmetrical. GI: No signs and/or symptoms were reported involving the gastrointestinal system. : Reports vaginal bleeding that is for 6 months. EENT: No signs and/or symptoms were reported regarding the EENT system. Derm: Skin is intact, is healthy with good turgor, Skin is pink, warm \T\ dry. Musculoskeletal: No signs and/or symptoms reported regarding the musculoskeletal system. 00:21 Reassessment: ASSUMED CARE OF PT. PT SITTING IN BED. NO NEEDS AT THIS TIME. j7 Vital Signs: 11/26 22:41 BP 145 / 80; Pulse 90; Resp 20; Temp 98.7; Pulse Ox 100% ; Weight 77.11 kg; Height 5 jj7 ft. 2 in. ; Pain 0/10; 11/27 00:21 BP 119 / 67; Pulse 79; Resp 16; Pulse Ox 100% ; jj7 01:00 BP 111 / 71; Pulse 85; Resp 16; Pulse Ox 100% ; jj7 02:00 BP 113 / 71; Pulse 72; Resp 17; Pulse Ox 100% ; jj7 07:04 j7 11/26 22:41 Body Mass Index 31.09 (77.11 kg, 157.48 cm) [facility] 11/26 22:41 Pain Scale: Adult 7 07:04 SEE TRANSFUSION SHEET FOR VS jj7 ED Course: 11/26 21:58 Patient arrived in ED. rg4 22:18 Darline Marc PA-C is PHCP. sb4 22:18 Reji Swartz MD is Attending Physician. sb4 22:47 Triage completed. jj7 22:47 Arm band placed on right wrist. jj7 23:19 Clare Zhou, RN is Primary Nurse. me1 11/27 00:06 Transvaginal Study (probe) In Process Unspecified. EDMS 00:06 No provider procedures requiring assistance completed. me1 00:14 Inserted saline lock: 20 gauge in right antecubital area, using aseptic technique. me1 00:21 Patient has correct armband on for positive identification. Bed in low position. Call jj7 light in reach. Side rails up X 1. Adult w/ patient. Client placed on continuous cardiac and pulse oximetry monitoring. NIBP monitoring applied. 00:21 CBC with Diff Sent. jj7 00:21 Type And Screen Sent. jj7 00:21 BMP Sent. jj7 00:21 PT-INR Sent. jj7 00:21 Ptt, Activated Sent. jj7 01:40 Warm blanket given. jj7 01:54 Provided Education on: Blood Transfusion. Consent for blood and/or blood product jj7 transfusion explained by physician, signed by patient. 01:55 Warm blanket given. jj7 02:30 One-on-one care X 15 minutes. jj7 06:25 Lauren Hicks MD is Referral Physician. sp4 07:04 IV discontinued, intact, bleeding controlled, No redness/swelling at site. Pressure jj7 dressing applied. Administered Medications: 01:28 Drug: Calcium Gluconate IVPB 2 grams IVPB once over 60 mins; (mix in NS 100 mL) Route: jj7 IVPB; Infused Over: 60 mins; Site: right antecubital; 02:30 Follow up: IV Status: Completed infusion jj7 01:52 Drug: tranexamic acid 1000 mg IV at calculated rate once; administer at a rate not to jj7 exceed 100 mg per min Route: IV; Rate: calculated rate; Site: right antecubital; 02:00 Follow up: IV Status: Completed infusion jj7 03:00 Follow up: IV Status: Completed infusion jj7 07:05 Drug: Acetaminophen PO 1000 mg PO once Route: PO; j7 07:20 Follow up: Response: No adverse reaction j7 07:05 Drug: diphenhydrAMINE PO 25 mg PO once Route: PO; j7 07:20 Follow up: Response: No adverse reaction jj7 Medication: 02:30 Blood products: PRBCs X 1 unit given. j7 03:50 Blood products: PRBCs X 2 units given. jj7 05:15 Blood products: PRBCs X 3 units given. jj7 07:12 VIS not applicable for this client. jj7 Outcome: 06:25 Discharge ordered by MD. barbosa 07:04 Discharged to home ambulatory, with significant other, jj7 07:04 Condition: improved 07:04 Discharge instructions given to patient, significant other, Instructed on discharge instructions, follow up and referral plans. medication usage, Demonstrated understanding of instructions, follow-up care, medications, 07:04 Prescriptions given X 2, 07:09 Patient left the ED. jj7 Signatures: Dispatcher [employer] [address] rg4 Archana Branch RN RN jj7 Darline Marc, PA-C PA-C sb4 Reji Swartz MD MD sp4 Clare Zhou RN RN me1 Corrections: (The following items were deleted from the chart) 00:05 11/26 22:41 Chief complaint: Patient states: HEART PALPITATIONS. ANEMIA WITH LONG me1 LASTING 6 MONTH PERIODS. PT IS PALE. FEELING WEAK AND TIRED j7 11/27 07:20 07:19 Patient left the ED. jj7 jj7
--- NOTE | 2023-11-28 06:26 | EDPHYS ---
Physician Documentation [facility] Name: Yola Smith Age: 28 yrs Sex: Female : 1995 Arrival Date: 11/27/2023 Time: 21:53 Bed 15 Private MD: ED Physician Reji Swartz HPI: 11/26 23:39 This 28 yrs old Female presents to ER via Ambulatory with complaints of heart sb4 palpitations. 23:39 Patient states that she started experiencing palpitations today. She also reports sb4 shortness of breath with exertion. States that she gets symptoms like this when her hemoglobin gets low. She has history of very heavy menstrual cycles. States that she has been bleeding for about 6 months now, going through 1 pad an hour. She states that she does take iron supplementation, but has not been taking it for a few days now. She has taken OCPs in the past but do not help with the bleeding. She has seen a transport nurse who refused hysterectomy due to her young age. 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 Flu vaccine is not up to date. - Social history:: Smoking status: Patient denies any tobacco usage or history of. Patient/guardian denies using alcohol, street drugs, IV drugs. ROS: 23:39 Constitutional: Negative for fever, chills, and weight loss, sb4 23:39 Cardiovascular: Positive for palpitations, 23:39 Respiratory: Positive for shortness of breath, on exertion. 23:39 : Positive for vaginal bleeding, 23:39 Neuro: Positive for dizziness, 23:39 All other systems are negative, Exam: 23:39 Head/Face: Normocephalic, atraumatic. Eyes: Extra-ocular motions intact. Periorbital sb4 areas with no swelling, redness, or edema. ENT: Mucous membranes moist. Cardiovascular: Regular rate and rhythm with a normal S1 and S2. Respiratory: Lungs have equal breath sounds bilaterally, clear to auscultation and percussion. No rales, rhonchi or wheezes noted. No increased work of breathing, no retractions or nasal flaring. Abdomen/GI: Soft, non-tender, no distension. Skin: Warm, dry with normal turgor. Normal color with no rashes, no lesions, and no evidence of cellulitis. MS/ Extremity: Pulses equal, no cyanosis. Neurovascular intact. Full, normal range of motion. Neuro: Awake and alert, GCS 15, oriented to person, place, time, and situation. Motor strength 5/5 in all extremities. Sensory grossly intact. 23:39 Constitutional: The patient appears alert, awake, pale, Vital Signs: 22:41 BP 145 / 80; Pulse 90; Resp 20; Temp 98.7; Pulse Ox 100% ; Weight 77.11 kg; Height 5 jj7 ft. 2 in. ; Pain 0/10; 11/27 00:21 BP 119 / 67; Pulse 79; Resp 16; Pulse Ox 100% ; jj7 01:00 BP 111 / 71; Pulse 85; Resp 16; Pulse Ox 100% ; jj7 02:00 BP 113 / 71; Pulse 72; Resp 17; Pulse Ox 100% ; jj7 07:04 7 11/26 22:41 Body Mass Index 31.09 (77.11 kg, 157.48 cm) 7 11/26 22:41 Pain Scale: Adult jj7 07:04 SEE TRANSFUSION SHEET FOR VS jj7 MDM: 11/26 23:00 Patient medically screened. sb4 11/27 01:04 Data reviewed: vital signs, nurses notes, lab test result(s), radiologic studies, I sb4 have discussed the patient's presentation/case with the attending Emergency Department Physician; and as a result, I will discharge patient. Consideration of Admission/Observation Escalation of care including admission/observation considered. Counseling: I had a detailed discussion with the patient and/or guardian regarding the historical points, exam findings, and any diagnostic results supporting the discharge/admit diagnosis, lab results, radiology results, the need for outpatient follow up, an OB/Gyne specialist, to return to the emergency department if symptoms worsen or persist or if there are any questions or concerns that arise at home. Special discussion: Based on the presenting symptoms and work-up in the emergency department, I discussed in detail the need to arrange with the PCP or specialist an outpatient procedure, Hysterectomy. 06:22 Differential Diagnosis altered mental status, sepsis, flu, Symptomatic anemia . ED sp4 course: Patient received 3 unit transfusion. Patient states she is feeling much better. 11/26 23:12 Order name: Type And Screen sb4 11/26 23:12 Order name: CBC with Diff sb4 11/26 23:12 Order name: BMP; Complete Time: 00:52 sb4 11/26 23:12 Order name: PT-INR; Complete Time: 00:41 sb4 11/26 23:12 Order name: Ptt, Activated; Complete Time: 00:41 sb4 11/27 00:34 Order name: CBC Smear Scan EDID 11/27 01:25 Order name: Packed RBC Leukored EDID 11/26 23:12 Order name: Transvaginal Study (probe) sb4 11/26 23:12 Order name: IV Start; Complete Time: 00:21 sb4 Administered Medications: :28 Drug: Calcium Gluconate IVPB 2 grams IVPB once over 60 mins; (mix in NS 100 mL) Route: jj7 IVPB; Infused Over: 60 mins; Site: right antecubital; 02:30 Follow up: IV Status: Completed infusion jj7 01:52 Drug: tranexamic acid 1000 mg IV at calculated rate once; administer at a rate not to jj7 exceed 100 mg per min Route: IV; Rate: calculated rate; Site: right antecubital; 02:00 Follow up: IV Status: Completed infusion jj7 03:00 Follow up: IV Status: Completed infusion jj7 07:05 Drug: Acetaminophen PO 1000 mg PO once Route: PO; jj7 07:20 Follow up: Response: No adverse reaction jj7 07:05 Drug: diphenhydrAMINE PO 25 mg PO once Route: PO; jj7 07:20 Follow up: Response: No adverse reaction jj7 Disposition: 06:24 Co-signature as Attending Physician, Reji Swartz MD I agree with the assessment sp4 and plan of care. I reviewed the patient's care provided by Advanced Practice Provider \T\ agree w/ the diagnosis \T\ care plan. I personally saw the pt \T\ performed a substantive portion of the visit, incldng all aspects of the (History/Exam/Medical Decision Making). Disposition Summary: 11/28/23 06:25 Discharge Ordered Problem: new sp4 Symptoms: have improved sp4 Condition: Stable sp4 Diagnosis - Acute posthemorrhagic anemia sp4 - Abnormal uterine and vaginal bleeding, unspecified sp4 - Menorrhagia and anemia sp4 Followup: sb4 - With: Lauren Hicks MD - When: 2 - 3 days - Reason: Recheck today's complaints, Re-evaluation by your physician Discharge Instructions: - Discharge Summary Sheet sb4 - Blood Transfusion, Adult, Care After, [id number] sb4 Forms: - Patient Portal Instructions sp4 Prescriptions: - Sprintec (28) 0.25-35 mg-mcg Oral tablet - take 1 tablet ORAL route daily; 30 tablet; Refills: 0, Product Selection sb4 Permitted - Ferrous Sulfate 325 mg (65 mg Iron) Oral tablet - take 1 tablet ORAL route once daily; 30 tablet; Refills: 0, Product Selection sb4 Permitted Signatures: Dispatcher [employer] Archana Guerrero RN RN Darline Glass PAAngel PA-C sb4 Reji Swartz MD MD sp4
[2023-11-28] MEDS ORDERED: ACETAMINOPHEN 500 MG TAB ONE (07:03)
[2023-11-28] MEDS ORDERED: DIPHENHYDRAMINE 25 MG TAB/CAP ONE (07:03)
[2023-11-28 07:47] VITALS: BP 113/71; TEMP 98.7; O2SAT 100
--- NOTE | 2023-11-28 17:34 | RAD REPORT ---
EXAM DESCRIPTION: Transvaginal Study Probe CLINICAL HISTORY: 28 years Female VAGINAL BLEEDING COMPARISON: None TECHNIQUE: Endovaginal sonography of the pelvis was performed. FINDINGS: Uterus is normal in size measuring 7.2 x 3.8 x 4.2 cm. Endometrium is thickened measuring 1.9 cm. Right ovary is normal in size and echogenicity measuring 4.0 x 2.7 x 3.3 cm. Doppler evaluation revea led satisfactory flow. Left ovary is normal in size and echogenicity measuring 4.5 x 1.8 x 2.4 cm. Doppler evaluation reveal ed satisfactory flow. No abnormal fluid collections seen. No adnexal abnormalities bilaterally. IMPRESSION: Thickened endometrium. No abnormality involving the ovaries bilaterally. Electronically signed by: Mei Gutierrez MD 11/28/2023 12:25 AM CDT Due to temporary technical issues with the PACS/Fluency reporting system, reports are being signed by the in house radiologists without review as a courtesy to insure prompt reporting. The interpreting radiologist is fully responsible for the content of the report.
== END 2023-11-28 07:19 | disposition home or self-care (01) ==
LOC: ER 21:53
PROC: 30233N1 Transfusion of Nonautologous Red Blood Cells into Peripheral Vein, Percutaneous Approach (ICD-10-PCS; principal; 2023-11-28)
DX: D62 Acute posthemorrhagic anemia (principal); N92.0 Excessive and frequent menstruation with regular cycle
CPT/HCPCS: 36415; 36430; 76830; 80048; 85025; 85610; 85730; 86850; 86900; 86901; 86920; 96365; 96375; 99285; J0612; J7050; P9016

== ENCOUNTER 2024-07-28 09:46 | Emergency (ER) | payer SELFPAY ==
[2024-07-28] MEDS ORDERED: NA CHLORIDE 0.9% 1,000 ML ONE (10:14)
[2024-07-28 11:00] LABS: Absolute Eosinophils 0.1 K/uL (0-0.5); Eosinophils % 1.7 % (0-4.4)
[2024-07-28 11:03] LABS: Absolute Lymphocytes (CBC) 1.4 K/uL (0.7-4.9); Absolute Monocytes 0.2 K/uL (0.1-1.3); Absolute Neutrophil 2.6 K/uL (1.8-8.0); Hematocrit 17.5 % (36.0-45.0); Lymphocytes % 32.2 % (15.3-44.8); MCH 16.3 pg (27.0-35.0); MCHC 27.7 g/dL (32.0-36.0); MCV 58.9 fL (80-100); Monocytes % 5.7 % (3.3-12.3); Neutrophils % 59.4 % (41.7-73.7); Nucleated Red Blood Cells % 0.1 % (0-0); Platelets 161 thou/uL (152-406); RBC Red Blood Cell Count 2.97 M/uL (3.86-4.86); Red Cell Distribution Width 20.6 % (12.1-15.2)
[2024-07-28 11:06] LABS: Hemoglobin 4.9 g/dL (12.0-15.0)
[2024-07-28 11:09] LABS: Anion Gap 9.8 mEq/L (5.0-15.0); Potassium 3.8 mEq/L (3.5-5.1)
--- NOTE | 2024-07-28 11:40 | RAD REPORT ---
EXAMINATION: US Transvaginal Study Probe CLINICAL INDICATION: Female 29 years old.[facility] VAGINAL BLEEDING Bed: TECHNIQUE: Real-time ultrasonography of the pelvis was performed transvaginally. Color and spectral D oppler evaluation of the ovaries was performed. COMPARISON: No prior exam. FINDINGS: UTERUS AND CERVIX: The uterus measures 8.3 cm in length. The uterus is normal. No masses seen The end ometrium is mildly heterogeneous especially along the midsegment, measuring 0.8 cm in thickness, without a discrete focal lesion. RIGHT OVARY: Normal The right ovary measures 3.1 x 3.7 x 2.6 cm. Normal color and spectral Doppler evaluation of the right ovary.. LEFT OVARY: Normal The left ovary measures 4.1 x 2.4 x 2.6 cm. Normal color and spectral Doppler evaluation of the left ovary.. FREE FLUID: No free fluid. IMPRESSION: Mild heterogeneity of the endometrial stripe along the mid uterine segment, could relate to some rafael ined blood products, although a discrete focal lesion could not be elicited. Please correlate clinically, and consider additional evaluation by hysteroscopy if clinically indicated.
[2024-07-28] MEDS ORDERED: NA CHLORIDE 0.9% 250 ML ONE (12:02)
--- NOTE | 2024-07-28 12:07 | EDPHYS ---
Physician Documentation [facility] Name: Yola Hines Age: 29 yrs Sex: Female : 1995 Arrival Date: 07/28/2024 Time: 09:46 Bed 13 Private MD: HE Physician Elliot Velez HPI: 07/28 11:59 This 29 yrs old Female presents to ER via Ambulatory with complaints of alysha Vaginal Bleeding, Weakness. 11:59 The patient presents with vaginal bleeding that is moderate. Onset: The alysha symptoms/episode began/occurred 4 week(s) ago. Modifying factors: The symptoms are alleviated by nothing, the symptoms are aggravated by nothing. Associated signs and symptoms: The patient has no apparent associated signs or symptoms. Severity of symptoms: At their worst the symptoms were moderate, in the emergency department the symptoms are unchanged. The patient is sexually active, reportedly has a single partner. The patient has not experienced similar symptoms in the past. Historical: - Allergies: 10:05 Peanut Butter Flavor; ll1 10:05 peanut butter flavor (bulk); ll1 - PMHx: 10:05 Anemia; ll1 - PSHx: 10:05 Appendectomy; ll1 - Immunization history:: Adult Immunizations up to date. - Infectious Disease History:: Denies. - Social history:: Smoking status: Patient denies any tobacco usage or history of. ROS: 12:00 Constitutional: Negative for fever, chills, and weight loss, Eyes: Negative for injury, alysha pain, redness, and discharge, ENT: Negative for injury, pain, and discharge, Neck: Negative for injury, pain, and swelling, Cardiovascular: Negative for chest pain, palpitations, and edema, Respiratory: Negative for shortness of breath, cough, wheezing, and pleuritic chest pain, Abdomen/GI: Negative for abdominal pain, nausea, vomiting, diarrhea, and constipation, Back: Negative for injury and pain, MS/Extremity: Negative for injury and deformity, Neuro: Negative for headache, weakness, numbness, tingling, and seizure, Psych: Negative for depression, anxiety, suicide ideation, homicidal ideation, and hallucinations, Allergy/Immunology: Negative for hives, rash, and allergies, Endocrine: Negative for neck swelling, polydipsia, polyuria, polyphagia, and marked weight changes, Hematologic/Lymphatic: Negative for swollen nodes, abnormal bleeding, and unusual bruising, 12:00 : Positive for pelvic pain, vaginal bleeding, 12:00 Skin: Positive for pallor, Exam: 12:00 Constitutional: This is a well developed, well nourished patient who is awake, alert, alysha and in no acute distress. Head/Face: Normocephalic, atraumatic. Eyes: Pupils equal round and reactive to light, extra-ocular motions intact. Lids and lashes normal. Conjunctiva and sclera are non-icteric and not injected. Cornea within normal limits. Periorbital areas with no swelling, redness, or edema. ENT: Nares patent. No nasal discharge, no septal abnormalities noted. Tympanic membranes are normal and external auditory canals are clear. Oropharynx with no redness, swelling, or masses, exudates, or evidence of obstruction, uvula midline. Mucous membranes moist. Neck: Trachea midline, no thyromegaly or masses palpated, and no cervical lymphadenopathy. Supple, full range of motion without nuchal rigidity, or vertebral point tenderness. No Meningismus. Chest/axilla: Normal chest wall appearance and motion. Nontender with no deformity. No lesions are appreciated. Cardiovascular: Regular rate and rhythm with a normal S1 and S2. No gallops, murmurs, or rubs. Normal PMI, no JVD. No pulse deficits. Respiratory: Lungs have equal breath sounds bilaterally, clear to auscultation and percussion. No rales, rhonchi or wheezes noted. No increased work of breathing, no retractions or nasal flaring. Abdomen/GI: Soft, non-tender, with normal bowel sounds. No distension or tympany. No guarding or rebound. No evidence of tenderness throughout. Back: No spinal tenderness. No costovertebral tenderness. Full range of motion. MS/ Extremity: Pulses equal, no cyanosis. Neurovascular intact. Full, normal range of motion. Neuro: Awake and alert, GCS 15, oriented to person, place, time, and situation. Cranial nerves II-XII grossly intact. Motor strength 5/5 in all extremities. Sensory grossly intact. Cerebellar exam normal. Normal gait. Psych: Awake, alert, with orientation to person, place and time. Behavior, mood, and affect are within normal limits. 12:00 : Pelvic Exam: is not necessary for this patient, Sexual behavior: the patient is sexually active, and reports a single partner, Vital Signs: 10:05 BP 126 / 85; Pulse 87; Resp 17; Pulse Ox 100% on R/A; Weight 77.11 kg; Height 5 ft. 2 ll1 in. ; Pain 0/10; 12:37 BP 111 / 65; Pulse 80; Resp 17; Pulse Ox 99% on R/A; rs5 12:45 BP 108 / 68; Pulse 67; Resp 16; Pulse Ox 100% ; rs5 12:50 BP 113 / 69; Pulse 84; Resp 17; Pulse Ox 100% ; rs5 12:55 BP 104 / 65; Pulse 84; Resp 16; Pulse Ox 100% on R/A; rs5 13:45 BP 110 / 70; Pulse 74; Resp 17; Pulse Ox 99% on R/A; rs5 10:05 Body Mass Index 31.09 (77.11 kg, 157.48 cm) ll1 10:05 Pain Scale: Adult ll1 MDM: 09:54 Medical Screening Exam initiated [facility] 12:01 Differential diagnosis: dysmenorrhea, menometrorrhagia, menorrhea, Neoplasm nonspecific [facility] abdominal pain, uterine fibroids, urinary tract infection. Data reviewed: vital signs, nurses notes, lab test result(s), radiologic studies, ultrasound. Consideration of Admission/Observation Escalation of care including admission/observation considered. I considered the following discharge prescriptions or medication management in the emergency department Medications were administered in the Emergency Department. See MAR. Independent interpretation of the following test(s) in the Emergency Department Radiology Department Ultrasound: My interpretation is pelvic usg. Care significantly affected by the following chronic conditions: anemia. 07/28 09:55 Order name: Abo/rh Typing [facility] 07/28 11:15 Order name: Antibody Screen [facility] 07/28 09:55 Order name: Basic Metabolic Panel; Complete Time: 11:45 [facility] 07/28 09:55 Order name: CBC with Diff; Complete Time: 13:53 [facility] 07/28 11:09 Order name: CBC Smear Scan; Complete Time: 13:53 [facility] 07/28 11:41 Order name: Packed RBC Leukored [facility] 07/28 09:55 Order name: US Transvaginal Study (Probe); Complete Time: 11:45 [facility] 07/28 09:55 Order name: IV Saline Lock; Complete Time: 10:47 [facility] 07/28 09:55 Order name: Labs collected and sent; Complete Time: 10:47 alysha 07/28 09:55 Order name: NPO; Complete Time: 10:47 alysha 07/28 11:07 Order name: Transfuse; Complete Time: 18:26 alysha Administered Medications: 10:47 Drug: NS 0.9% IV 1000 ml IV at 1000 ml once; to be given as a bolus over 60 minutes rs5 Route: IV; Rate: 1000 ml; Site: right antecubital; Disposition Summary: 07/28/24 12:06 Transfer Ordered Notes: Transfer Location: [facility] alysha Reason: Higher level of care alysha Condition: Fair alysha Problem: new alysha Symptoms: have improved alysha Accepting Physician: to [facility](07/28/24 13:59) ll1 Diagnosis - Abnormal uterine and vaginal bleeding, unspecified alysha - Weakness alysha - Acute posthemorrhagic anemia alysha - Anemia, unspecified alysha Forms: - Medication Reconciliation Form alysha - SBAR form alysha Signatures: Dispatcher [employer] EDMS Elliot Velez MD MD cha Lewis, Lynsay, RN RN ll1 Angel Luis Paulson RN RN rs5 Corrections: (The following items were deleted from the chart) 09:56 09:56 ABO/RH TYPING+BB.LAB.BRZ ordered. EDMS EDMS 09:56 09:56 BASIC METABOLIC PANEL+C.LAB.BRZ ordered. EDMS EDMS 09:56 09:56 CBC+H.LAB.BRZ ordered. EDMS EDMS 09:56 09:56 Test, Urine+UC.LAB.BRZ ordered. EDMS EDMS 09:56 09:56 Urinalysis+U.LAB.BRZ ordered. EDMS EDMS 09:56 09:56 Transvaginal Study (Probe)+US.RAD.BRZ ordered. EDMS EDMS 11:15 11:07 TYPE AND SCREEN+BB.LAB.BRZ ordered. EDMS EDMS 13:59 12:06 to [facility] alysha ll1
--- NOTE | 2024-07-28 12:07 | ER ---
Nurse's Notes [facility] Name: Yola Hines Age: 29 yrs Sex: Female : 1995 Arrival Date: 07/28/2024 Time: 09:46 Bed 13 Private MD: Diagnosis: Abnormal uterine and vaginal bleeding, unspecified;Weakness;Acute posthemorrhagic anemia;Anemia, unspecified Presentation: 07/28 10:05 Chief complaint: Patient states: Heavy vaginal bleeding with weakness for 2 weeks. ll1 Coronavirus screen: Client denies travel out of the [place] in the last 14 days. At this time, the client does not indicate any symptoms associated with coronavirus-19. Ebola Screen: Patient denies travel to an Ebola-affected area in the 21 days before illness onset. Initial Sepsis Screen: Does the patient meet any 2 criteria? No. Patient's initial sepsis screen is negative. Does the patient have a suspected source of infection? No. Patient's initial sepsis screen is negative. Risk Assessment: Do you want to hurt yourself or someone else? Patient reports no desire to harm self or others. Onset of symptoms was July 14, 2024. 10:05 Method Of Arrival: Ambulatory ll1 10:05 Acuity: CARLOS ALBERTO 2 ll1 Triage Assessment: 10:05 General: Appears uncomfortable, ill, Behavior is calm, cooperative, appropriate for ll1 age. General: Reports fatigue for. Pain: Denies pain. Neuro: Reports weakness. : Reports vaginal bleeding that is heavy flow. Derm: very pale. Historical: - Allergies: 10:05 Peanut Butter Flavor; ll1 10:05 peanut butter flavor (bulk); ll1 - PMHx: 10:05 Anemia; ll1 - PSHx: 10:05 Appendectomy; ll1 - Immunization history:: Adult Immunizations up to date. - Infectious Disease History:: Denies. - Social history:: Smoking status: Patient denies any tobacco usage or history of. Screenin:00 [facility] ED Fall Risk Assessment (Adult) History of falling in the last 3 months, rs5 including since admission No falls in past 3 months (0 pts) Confusion or Disorientation No (0 pts) Intoxicated or Sedated No (0 pts) Impaired Gait No (0 pts) Mobility Assist Device Used No (0 pt) Altered Elimination No (0 pt) Score/Fall Risk Level 0 - 2 = Low Risk Oriented to surroundings, Maintained a safe environment. 10:00 Abuse screen: Denies threats or abuse. Nutritional screening: No deficits noted. rs5 Tuberculosis screening: No symptoms or risk factors identified. Assessment: 10:00 General: Appears in no apparent distress. uncomfortable, Behavior is calm, cooperative. rs5 Pain: Denies pain. Neuro: Level of Consciousness is awake, alert, obeys commands, Oriented to person, place, time, situation. Cardiovascular: Patient's skin is warm and dry. Respiratory: Airway is patent Respiratory effort is even, unlabored, Respiratory pattern is regular, symmetrical. GI: Abdomen is round non-distended, Abd is soft and non tender X 4 quads. : Reports vaginal bleeding that is light flow. EENT: No signs and/or symptoms were reported regarding the EENT system. Derm: Skin is intact, Skin is pink, warm \T\ dry. Musculoskeletal: Range of motion: intact in all extremities, pt reports generalized weakness. 10:22 Reassessment: pt gone to ultrasound . rs5 10:45 Reassessment: pt back from ultrasound . rs5 10:46 Reassessment: Patient and/or family updated on plan of care and expected duration. Pain rs5 level reassessed. Patient is alert, oriented x 3, equal unlabored respirations, skin warm/dry/pink. 12:01 Reassessment: Patient and/or family updated on plan of care and expected duration. Pain rs5 level reassessed. Patient is alert, oriented x 3, equal unlabored respirations, skin warm/dry/pink. 12:55 Reassessment: Patient and/or family updated on plan of care and expected duration. Pain rs5 level reassessed. Patient is alert, oriented x 3, equal unlabored respirations, skin warm/dry/pink. to bedside for blood transfusion, rate started at 50 ml/hr, remained with patient for first 15 min, no adverse reaction noted, rate increased to 150 ml/hr. 13:50 Reassessment: report given to EMS at bedside . rs5 Vital Signs: 10:05 BP 126 / 85; Pulse 87; Resp 17; Pulse Ox 100% on R/A; Weight 77.11 kg; Height 5 ft. 2 ll1 in. ; Pain 0/10; 12:37 BP 111 / 65; Pulse 80; Resp 17; Pulse Ox 99% on R/A; rs5 12:45 BP 108 / 68; Pulse 67; Resp 16; Pulse Ox 100% ; rs5 12:50 BP 113 / 69; Pulse 84; Resp 17; Pulse Ox 100% ; rs5 12:55 BP 104 / 65; Pulse 84; Resp 16; Pulse Ox 100% on R/A; rs5 13:45 BP 110 / 70; Pulse 74; Resp 17; Pulse Ox 99% on R/A; rs5 10:05 Body Mass Index 31.09 (77.11 kg, 157.48 cm) ll1 10:05 Pain Scale: Adult ll1 ED Course: 09:50 Patient arrived in ED. mg5 09:54 Elliot Velez MD is Attending Physician. alysha 10:00 Arm band placed on Patient placed in an exam room, on a stretcher. ll1 10:00 Patient has correct armband on for positive identification. Placed in gown. Bed in low rs5 position. Call light in reach. Side rails up X2. 10:00 No provider procedures requiring assistance completed. rs5 10:03 Angel Luis Paulson, BEULAH is Primary Nurse. rs5 10:07 Triage completed. ll1 10:20 Inserted saline lock: 20 gauge in right antecubital area, using aseptic technique. rs5 Blood collected. Flushed with 10 mL NS. 10:26 US Transvaginal Study (Probe) In Process Unspecified. EDMS 12:24 \T\[id number] Velez with the [facility] transfer center/ \T\1205 eb administrative approval given by Demetra Benitez Rn, patient has been accepted to [facility] ED, Dr. Elie Terry has accepted the patient in transfer/ report to be called to [phone]. 13:55 Patient transferred, IV remains in place. rs5 Administered Medications: 10:47 Drug: NS 0.9% IV 1000 ml IV at 1000 ml once; to be given as a bolus over 60 minutes rs5 Route: IV; Rate: 1000 ml; Site: right antecubital; Medication: 10:52 VIS not applicable for this client. rs5 Outcome: 12:06 ER care complete, transfer [facility] by [facility] 13:55 Transferred by ground EMS to [facility], Transfer form rs5 completed. 13:55 Condition: stable 13:55 Instructed on the need for transfer, Demonstrated understanding of instructions, 13:59 Patient left the ED. ll1 Signatures: Dispatcher [employer] Elliot Elam MD MD cha Botello, Weston Mock RN RN ll1 Angel Luis Paulson RN RN rs5 Talisha Sepulveda 5
[2024-07-28 12:52] LABS: Anisocytosis 1+; Blood Morphology Comment NOTED (NOT SEEN); Hypochromasia 3+; Microcytosis 3+; Ovalocytes 1+; Platelet Estimate ADEQ; Polychromasia 1+; Teardrop Cell 1+; White Blood Cell Scan OK (OK)
[2024-07-28 15:53] VITALS: BP 126/85; O2SAT 100
== END 2024-07-28 13:59 | disposition short-term general hospital (02) ==
LOC: ER 09:46
PROC: 30233N1 Transfusion of Nonautologous Red Blood Cells into Peripheral Vein, Percutaneous Approach (ICD-10-PCS; principal; 2024-07-28)
DX: D62 Acute posthemorrhagic anemia (principal); R53.1 Weakness
CPT/HCPCS: 36415; 76830; 80048; 85025; 86850; 86900; 86901; 86920; 99285; J7030; J7050; P9016